=== PATIENT | male | born 1955 | race Two or more races ===

== ENCOUNTER 2018-05-21 21:30 | Emergency (ER) | payer MEDICAID ==
[~2018-05-21] VITALS: Ht 162.6 cm; Wt 92.5 kg
[2018-05-21] MEDS ORDERED: KEPPRA750 MG ORAL (21:45)
[2018-05-21] MEDS ORDERED: norvasc (21:45)
[2018-05-21] MEDS ORDERED: Revia (21:45)
[2018-05-21] MEDS ORDERED: OMEPRAZOLE20 M3 ORAL (21:45)
[2018-05-21] MEDS ORDERED: LIPITOR40 MG ORAL (21:45)
--- NOTE | 2018-05-21 21:49 | Emergency Room Report ---
History of Present Illness General Chief Complaint: Suicidal Source: Patient, Medical Record, EMS Present Illness HPI Is a 63-year-old male with a history of seizure and depression. He presents with suicidal thought. This has been ongoing since 2000. He was recently admitted to a psychiatric facility and discharged to a motel. He called 911 because he said he felt depressed and suicidal. No particular plan. Is currently taking medication. Denies any alcohol drugs. Denies any other complaint. Has numerous psychiatric admission per patient. Never once attempted suicide. Allergies: Coded Allergies: No Known Allergies (Unverified , 05/21/18) Patient History Past Medical History: see triage record, old chart reviewed, seizures, psych hx Past Surgical History: other Pertinent Family History: none Social History: Denies: smoking, alcohol use, drug use Immunizations: other Reviewed Nursing Documentation: PMH: Agreed; PSxH: Agreed Nursing Documentation-PMH Hx Diabetes: Yes History Of Psychiatric Problem: Yes - Depression Hx Seizures: Yes Review of Systems Eye: Denies: eye pain, blurred vision ENT: Denies: ear pain, nose congestion, throat swelling Respiratory: Denies: cough, shortness of breath Cardiovascular: Denies: chest pain, palpitations Gastrointestinal: Denies: abdominal pain, diarrhea, nausea, vomiting Musculoskeletal: Denies: back pain, joint pain Skin: Denies: rash Psychiatric: Reports: depressed feelings, SI Neurological: Denies: headache, numbness Endocrine: Denies: increased thirst, increased urine Hematologic/Lymphatic: Denies: easy bruising All Other Systems: negative except mentioned in HPI Physical Exam Vital Signs Date Time Temp Pulse Resp B/P (MAP) Pulse Ox O2 Delivery O2 Flow Rate FiO2 05/21/18 21:34 99.3 96 20 167/98 94 Room Air vitals normal except for high blood pressure Sp02 EP Interpretation: reviewed, normal General Appearance: well appearing, no apparent distress, alert Head: normocephalic, other - Hematoma to left forehead from previous trauma. Eyes: bilateral eye PERRL, bilateral eye EOMI ENT: hearing grossly normal, normal pharynx Neck: full range of motion, supple, no meningismus Respiratory: chest non-tender, lungs clear, normal breath sounds Cardiovascular #1: regular rate, rhythm, no murmur Gastrointestinal: normal bowel sounds, non tender, no mass, no organomegaly, no bruit, non-distended Musculoskeletal: back normal, gait/station normal, normal range of motion Psychiatric: mood/affect normal Skin: warm/dry Medical Decision Making Diagnostic Impression: Primary Impression: Suicidal ideation Additional Impression: Major depression Qualified Codes: F32.9 - Major depressive disorder, single episode, unspecified ER Course Patient with depression and suicidal thoughts. This is a chronic issue. To me said his been depressed since 2000. He was recently admitted and discharged from a psychiatric hospital. Right now after sleeping overnight, he denies any suicidal thoughts or homicidal thought. He has no particular plan. [facility]'ll [facility]. Last Vital Signs Date Time Temp Pulse Resp B/P (MAP) Pulse Ox O2 Delivery O2 Flow Rate FiO2 05/21/18 21:34 99.3 96 20 167/98 94 Room Air Status: improved Disposition: HOME, SELF-CARE Condition: Stable Patient Instructions: Suicidal Feelings: How to Help Yourself Additional Instructions: Follow-up with mental health as scheduled. Follow-up your doctor in 7 days. Return if worse. Ck Henry MD May 21, 2018 21:49
[2018-05-21 21:50] VITALS: BP 167/98
--- NOTE | 2018-05-21 21:50 | NUR ---
ER Nurse Note: Pt [place] from [facility] c/o suicidal ideation for six months. Per pt, he is depressed and SI become worse the last few days. Pt stated he has no plan and no prior plan. Pt a&ox4, VSS, no signs of distress. ERMD at pt side; will continue to [facility].
[2018-05-21 22:44] LABS: BASOPHILS % (AUTO) 0.9 % (0.0-2.0); EOSINOPHILS % (AUTO) 2.4 % (0.0-3.0); HEMATOCRIT 43.2 % (42.0-52.0); HEMOGLOBIN 14.1 G/DL (14.2-18.0); LYMPHOCYTES % (AUTO) 19.5 % (20.0-45.0); MEAN CORPUSCULAR VOLUME 82 FL (80-99); MONOCYTES % (AUTO) 6.3 % (1.0-10.0); NEUTROPHILS % (AUTO) 70.9 % (45.0-75.0); PLATELET COUNT 228 K/UL (150-450); RED BLOOD COUNT 5.28 M/UL (4.70-6.10); RED CELL DISTRIBUTION WIDTH 14.3 % (11.6-14.8)
--- NOTE | 2018-05-21 22:50 | NUR ---
ER Nurse Note: Pt belongings in locker 3. All labs sent per ERMD orders. Pt ambulates with shuffled but stady gait. Pt denies pain. Pt calm, follows commands, no signs of distress. All safety meaasures met; will continue to [facility].
[2018-05-21 22:53] LABS: ANION GAP 10 mmol/L (5-15); BLOOD UREA NITROGEN 8 mg/dL (7-18); CALCIUM 8.8 MG/DL (8.5-10.1); CARBON DIOXIDE 27 MMOL/L (21-32); CHLORIDE 98 MMOL/L (98-107); CREATININE 0.9 MG/DL (0.55-1.30); SODIUM 135 MMOL/L (136-145)
[2018-05-21 22:58] LABS: ALANINE AMINOTRANSFERASE 29 U/L (12-78); ALKALINE PHOSPHATASE 111 U/L (46-116); ASPARTATE AMINO TRANSFERASE 17 U/L (15-37); BILIRUBIN,TOTAL 0.4 MG/DL (0.2-1.0)
--- NOTE | 2018-05-22 01:49 | NUR ---
ER Nurse Note: Pt ambualted to restroom; currently asleep. VSS, no signs of distress. Will continue to [facility].
[2018-05-22 01:50] VITALS: BP 162/96
[2018-05-22 05:15] VITALS: BP 163/88
--- NOTE | 2018-05-22 05:16 | NUR ---
ER Nurse Note: Pt awake, calm, VSS, afebrile. Pt stated he feels "so much better" than when he first came in. Pt does not compain of pain; pt making jokes. IV removed; site clean and bandaged. All belongings given to pt. Transport arranged to pt to go back to [facility]. Will continue to [facility].
[2018-05-22 05:49] VITALS: BP 156/82
--- NOTE | 2018-05-22 05:49 | NUR ---
ER Nurse Note: Pt being transfered back to [facility] via [facility]. Pt left with all belongings. VSS, no signs of distress, IV removed.
== END 2018-05-22 05:50 | disposition home or self-care (01) ==
LOC: EDBD 21:30 → EMR 23:09
DX: F32.9 Major depressive disorder, single episode, unspecified (principal); R56.9 Unspecified convulsions; R45.851 Suicidal ideations; E11.9 Type 2 diabetes mellitus without complications
CPT/HCPCS: 36415; 80053; 80307; 80329; 85025; 99285

== ENCOUNTER 2018-06-13 19:05 | Inpatient (IN) | payer MEDICAID ==
[~2018-06-13] VITALS: Ht 162.6 cm; Wt 94.3 kg
[~2018-06-13 19:05] MED LIST: KEPPRA750 MG ORAL; LIPITOR40 MG ORAL; OMEPRAZOLE20 M3 ORAL; Revia; norvasc
--- NOTE | 2018-06-13 19:05 | NUR ---
ED Nurse Note: Pt arrived with EMT. EMT report Pt was feeling like he is gonna have seizure attack, and Pt has seizure Hx. Pt is AO x 4times, VSS, on room air no distress. GRICELD seen Pt at bedside.
--- NOTE | 2018-06-13 20:06 | Emergency Room Report ---
History of Present Illness General Chief Complaint: General Complaint Source: EMS Present Illness HPI 63-year-old male presents to the emergency department complaining of feeling shaky and as though he is on the verge of having a seizure. Patient reports history of seizures states that he takes Keppra and he has been taking his medication however he feels a "aura" which she describes as feeling nervous and having ringing in the ear on the left side. He denies nausea, vomiting, abdominal pain, sudden onset headache, dizziness, syncope, altered mental status or fever/chills. The patient has a history of diabetes requiring insulin any states that he does not take his insulin as he feels that it makes him feel "as though he did a bunch of cocaine "therefore he has self DC'd from a medication in 2010 according to the patient. This patient also reports history of alcohol abuse and dependence and states that the last 3 days he has been trying to cut back. Patient states that he went from drinking a 40oz + a pint of hard liquor per/day down to one 40oz per day and he states that his last intake was yesterday and he had a beer. Patient denies agitation. Allergies: Coded Allergies: No Known Allergies (Unverified , 05/21/18) Patient History Past Medical History: see triage record, DM, seizures, other - ETOH W/D, Brain surgery Past Surgical History: none Pertinent Family History: none Reviewed Nursing Documentation: PMH: Agreed; PSxH: Agreed Nursing Documentation-PM Past Medical History: No History, Except For Hx Diabetes: Yes Hx Cancer: Yes - prostate Hx Seizures: Yes Review of Systems All Other Systems: negative except mentioned in HPI Physical Exam Vital Signs Date Time Temp Pulse Resp B/P (MAP) Pulse Ox O2 Delivery O2 Flow Rate FiO2 06/13/18 18:57 100.0 95 18 128/81 96 Room Air Sp02 EP Interpretation: reviewed, normal General Appearance: alert, GCS 15, non-toxic, moderate distress - pt. shaky/ nervous Head: normocephalic, atraumatic Eyes: bilateral eye normal inspection, bilateral eye PERRL, bilateral eye photophobia ENT: hearing grossly normal, normal voice, moist mucus membranes, other - no oral trauma Neck: full range of motion, no bony tend Respiratory: lungs clear, normal breath sounds, no respiratory distress, no wheezing, speaking full sentences Cardiovascular #1: regular rate, rhythm, no edema, normal capillary refill Gastrointestinal: normal bowel sounds, non tender, soft Musculoskeletal: back normal, normal range of motion, non-tender Neurologic: alert, oriented x3, responsive, motor strength/tone normal, sensory intact, speech normal, other, grossly normal Psychiatric: judgement/insight normal Skin: normal color, no rash, warm/dry, well hydrated Medical Decision Making PA Attestation Dr. Obrien is my supervising Physician whom patient management has been discussed with. Diagnostic Impression: Primary Impression: Alcohol dependence with withdrawal, uncomplicated Additional Impression: Hyperglycemia ER Course 63-year-old male presents to the emergency department complaining of feeling shaky and as though he is on the verge of having a seizure. Patient reports history of seizures states that he takes Keppra and he has been taking his medication however he feels a "aura" which she describes as feeling nervous and having ringing in the ear on the left side. He denies nausea, vomiting, abdominal pain, sudden onset headache, dizziness, syncope, altered mental status or fever/chills. The patient has a history of diabetes requiring insulin any states that he does not take his insulin as he feels that it makes him feel "as though he did a bunch of cocaine "therefore he has self DC'd from a medication in 2010 according to the patient. This patient also reports history of alcohol abuse and dependence and states that the last 3 days he has been trying to cut back. Patient states that he went from drinking a 40oz + a pint of hard liquor per/day down to one 40oz per day and he states that his last intake was yesterday and he had a beer. Patient denies agitation. Ddx considered but are not limited to seizure, meningitis, infection, CVA/TIA, intracranial hemorrhage, intracranial process, Delirium Tremors, ETOH W/D, Vital signs: he is afebrile, vital signs are WNL H&PE are most consistent with ETOH w/d and possibly hyperglycemia ORDERS: -Bedside Accu Check: Critically High -CMP: Glucose of 638, Potassium of 4.8, elevated alk phos, normal LFT's. -CBC: unremarkable -UA: 4+ glucose -UDS: negative -Serum ETOH: no acute intoxication -Troponin: WNL - BNP: WNL ED INTERVENTIONS: -IV Fluids -10 Units Regular insulin IV -25mg Librium PO DISPOSITION: at this time pt. will be admitted to Dr. Nation for ETOH W/d and Hyperglycemia. Dr. Nation agreed to admit the pt. and to continue pt. care management. Labs Test 06/13/18 19:50 06/13/18 20:00 06/13/18 20:30 Urine Color Pale yellow Urine Appearance Clear Urine pH 5 (4.5-8.0) Urine Specific [place] 1.005 (1.005-1.035) Urine Protein Negative (NEGATIVE) Urine Glucose (UA) 4+ (NEGATIVE) Urine Ketones Negative (NEGATIVE) Urine Blood Negative (NEGATIVE) Urine Nitrite Negative (NEGATIVE) Urine Bilirubin Negative (NEGATIVE) Urine Urobilinogen Normal MG/DL (0.0-1.0) Urine Leukocyte Esterase Negative (NEGATIVE) Urine Opiates Screen Negative (NEGATIVE) Urine Barbiturates Screen Negative (NEGATIVE) Phencyclidine (PCP) Screen Negative (NEGATIVE) Urine Amphetamines Screen Negative (NEGATIVE) Urine Benzodiazepines Screen Negative (NEGATIVE) Urine Cocaine Screen Negative (NEGATIVE) Urine Marijuana (THC) Screen Negative (NEGATIVE) White Blood Count 9.0 K/UL (4.8-10.8) Red Blood Count 5.58 M/UL (4.70-6.10) Hemoglobin 14.8 G/DL (14.2-18.0) Hematocrit 46.1 % (42.0-52.0) Mean Corpuscular Volume 83 FL (80-99) Mean Corpuscular Hemoglobin 26.5 PG (27.0-31.0) Mean Corpuscular Hemoglobin Concent 32.0 G/DL (32.0-36.0) Red Cell Distribution Width 13.8 % (11.6-14.8) Platelet Count 257 K/UL (150-450) Mean Platelet Volume 7.3 FL (6.5-10.1) Neutrophils (%) (Auto) 80.8 % (45.0-75.0) Lymphocytes (%) (Auto) 13.1 % (20.0-45.0) Monocytes (%) (Auto) 5.0 % (1.0-10.0) Eosinophils (%) (Auto) 0.2 % (0.0-3.0) Basophils (%) (Auto) 1.0 % (0.0-2.0) Sodium Level 129 MMOL/L (136-145) Potassium Level 4.8 MMOL/L (3.5-5.1) Chloride Level 91 MMOL/L (98-107) Carbon Dioxide Level 28 MMOL/L (21-32) Anion Gap 10 mmol/L (5-15) Blood Urea Nitrogen 15 mg/dL (7-18) Creatinine 1.2 MG/DL (0.55-1.30) Estimat Glomerular Filtration Rate > 60 mL/min (>60) Glucose Level 638 MG/DL (74-106) Calcium Level 10.0 MG/DL (8.5-10.1) Total Bilirubin 0.7 MG/DL (0.2-1.0) Aspartate Amino Transf (AST/SGOT) 19 U/L (15-37) Alanine Aminotransferase (ALT/SGPT) 31 U/L (12-78) Alkaline Phosphatase 128 U/L (46-116) Total Creatine Kinase 107 U/L (26-308) Troponin I 0.000 ng/mL (0.000-0.056) Total Protein 8.5 G/DL (6.4-8.2) Albumin 4.4 G/DL (3.4-5.0) Globulin 4.1 g/dL Albumin/Globulin Ratio 1.1 (1.0-2.7) Serum Alcohol < 3 mg/dL Pro-B-Type Natriuretic Peptide 47 pg/mL (0-125) EKG Diagnostic Results EP Interpretation: Dr. Obrien Rate: normal - 93 BPM Rhythm: other - 1st degree AV block ST Segments: no acute changes ASA given to the pt in ED: No PA Scribe Text This Interpretation was scribed by LIAN Bautista. Last Vital Signs Date Time Temp Pulse Resp B/P (MAP) Pulse Ox O2 Delivery O2 Flow Rate FiO2 06/13/18 18:57 100.0 95 18 128/81 96 Room Air Disposition: ADMITTED INPATIENT Condition: Serious Signed Out To: Constance Layton Jun 13, 2018 20:06
[2018-06-13 20:20] LABS: APPEARANCE,URINE CLEAR; BILIRUBIN, URINE NEGATIVE (NEGATIVE); COLOR,URINE PALE YELLOW; GLUCOSE, URINE (UA) 4+ (NEGATIVE); KETONES,URINE NEGATIVE (NEGATIVE); LEUKOCYTE ESTERASE ,URINE NEGATIVE (NEGATIVE); NITRITE,URINE NEGATIVE (NEGATIVE); PH,URINE 5 (4.5-8.0); PROTEIN,URINE NEGATIVE (NEGATIVE); UROBILINOGEN,URINE NORMAL MG/DL (0.0-1.0)
[2018-06-13 20:23] LABS: EOSINOPHILS % (AUTO) 0.2 % (0.0-3.0); HEMATOCRIT 46.1 % (42.0-52.0); HEMOGLOBIN 14.8 G/DL (14.2-18.0); LYMPHOCYTES % (AUTO) 13.1 % (20.0-45.0); MEAN CORPUSCULAR VOLUME 83 FL (80-99); NEUTROPHILS % (AUTO) 80.8 % (45.0-75.0); PLATELET COUNT 257 K/UL (150-450); RED BLOOD COUNT 5.58 M/UL (4.70-6.10); RED CELL DISTRIBUTION WIDTH 13.8 % (11.6-14.8)
[2018-06-13 20:25] VITALS: BP 130/84
[2018-06-13 20:37] LABS: ALANINE AMINOTRANSFERASE 31 U/L (12-78); ALBUMIN 4.4 G/DL (3.4-5.0); ALBUMIN/GLOBULIN RATIO 1.1 (1.0-2.7); ALKALINE PHOSPHATASE 128 U/L (46-116); ANION GAP 10 mmol/L (5-15); ASPARTATE AMINO TRANSFERASE 19 U/L (15-37); BILIRUBIN,TOTAL 0.7 MG/DL (0.2-1.0); BLOOD UREA NITROGEN 15 mg/dL (7-18); CARBON DIOXIDE 28 MMOL/L (21-32); CHLORIDE 91 MMOL/L (98-107); CREATINE KINASE 107 U/L (26-308); CREATININE 1.2 MG/DL (0.55-1.30); POTASSIUM 4.8 MMOL/L (3.5-5.1); SODIUM 129 MMOL/L (136-145)
[2018-06-13] MEDS ORDERED: Insulin Human Regular 100units/ml 3ml IV ONE (21:00)
--- NOTE | 2018-06-13 21:00 | NUR ---
ED Nurse Note: Blood collected; sent down to lab
[2018-06-13] MEDS ORDERED: chlordiazePOXIDE 25mg Cap ORAL ONE (21:45)
--- NOTE | 2018-06-13 22:40 | NUR ---
TRANSFER TO FLOOR: Patient transferred to Telemetry 216-2 as ordered, per MD Messi . Report given to ADÁN Wilson. Belongings list completed with receiving RN. PT AO4. LORENZO. VSS.
--- NOTE | 2018-06-13 23:00 | NUR ---
NURSE NOTES: Received patient form ED, report given by ADÁN Ascencio. Patient awake, alert and verbally responsive. No SOB, no acute distress, denies any pain nor any discomfort at this time. Put on airport ramp attendant, VS stable. IV site on L thumb #18, patent and intact. Body assessment done, no skin breakdown noted. Belongings all accounted for. Oriented to staff and unit. Put bed at lowest position, instructed to press call light for any assistance, verbalized understanding. Per ADÁN Ascencio, initial BS 638, last one checked 238. Paged Dr. Swenson for admission orders. Will continue plan of care.
--- NOTE | 2018-06-13 23:15 | NUR ---
NURSE NOTES: Dr. Swenson with admission orders, noted and carried out. Also aware of Na+ of 129.
[2018-06-13] MEDS ORDERED: Acetaminophen 500mg (ES) tab ORAL PRN (23:45)
[2018-06-14] VITALS: BP 126/75
[2018-06-14 04:00] VITALS: BP 133/92
--- NOTE | 2018-06-14 04:15 | NUR ---
NURSE NOTES: Patient asleep, breathing even and unlabored, no s/sx of pain nor any discomfort at this time. Bed at lowest position, call light within reach. MRSA nares swab done but patient refused VRE/CRE.
--- NOTE | 2018-06-14 04:18 | NUR ---
NURSE NOTES: Dr. Swenson with no order for Na+, per MD, false hyponatremia d/t elevated BS.
[2018-06-14] MEDS: NovoLOG Insulin Flexpen SUBQ SCH ×4 (06:13→20:47)
[2018-06-14 06:23] LABS: BASOPHILS % (AUTO) 1.1 % (0.0-2.0); EOSINOPHILS % (AUTO) 3.1 % (0.0-3.0); HEMATOCRIT 44.8 % (42.0-52.0); HEMOGLOBIN 14.8 G/DL (14.2-18.0); LYMPHOCYTES % (AUTO) 25.2 % (20.0-45.0); MEAN CORPUSCULAR VOLUME 81 FL (80-99); MONOCYTES % (AUTO) 7.8 % (1.0-10.0); NEUTROPHILS % (AUTO) 62.8 % (45.0-75.0); PLATELET COUNT 240 K/UL (150-450); RED CELL DISTRIBUTION WIDTH 14.4 % (11.6-14.8); WHITE BLOOD COUNT 6.9 K/UL (4.8-10.8)
[2018-06-14 07:02] LABS: ALANINE AMINOTRANSFERASE 34 U/L (12-78); ALBUMIN/GLOBULIN RATIO 1.1 (1.0-2.7); ALKALINE PHOSPHATASE 117 U/L (46-116); ANION GAP 8 mmol/L (5-15); ASPARTATE AMINO TRANSFERASE 13 U/L (15-37); BILIRUBIN,TOTAL 0.7 MG/DL (0.2-1.0); BLOOD UREA NITROGEN 16 mg/dL (7-18); CALCIUM 9.5 MG/DL (8.5-10.1); CARBON DIOXIDE 30 MMOL/L (21-32); CHLORIDE 99 MMOL/L (98-107); SODIUM 137 MMOL/L (136-145)
--- NOTE | 2018-06-14 07:22 | NUR ---
HAND-OFF: Report given to ADÁN Bojorquez. Endorsed plan of care.
[2018-06-14 07:48] VITALS: BP 140/80
--- NOTE | 2018-06-14 09:31 | NUR ---
NURSE NOTES: pt awake alert, no distress. no sob. call light within reach. bed in lowest position, locked, pt no c/o pain
--- NOTE | 2018-06-14 09:55 | NUR ---
Social Service Note TOMMY met with patient to assess for homelessness. Patient is alert, oriented and verbally responsive in [place]. Patient states he has been residing at [facility] for several months, in their housing to health program. TOMMY spoke with the program manager Lucas Munir [phone] regarding patient's acceptance back into the program. Lucas patient is being followed by [employer] and his assistant customer service manager is Tracy. Lucas declined to provide Tracy's contact information to TOMMY. Lucas patient is approved to return to the [facility] location. Patient to have discharge instruction with him. TOMMY attempted to arrange a follow up appointment at patient's contracted facility [facility] [address] [place] [address]. [phone] [phone], . Per Adele in scheduling follow up appointment will be arranged by patient's assistant customer service manager and appointment date and time will be called to patient's housing program. Patient is in agreement with returning to facility. Taxi will be provided for transportation. Lucas would like patient to return to program today if medically appropriate. TOMMY informed Dr. Swenson. Homeless check list in chart. D/C Location: [address] [address]
--- NOTE | 2018-06-14 10:24 | Consultation ---
Consult Note Consult Note 63-year-old male presents to the emergency department complaining of feeling shaky and as though he is on the verge of having a seizure. Patient reports history of seizures states that he takes Keppra and he has been taking his medication however he feels a "aura" which she describes as feeling nervous and having ringing in the ear on the left side. He denies nausea, vomiting, abdominal pain, sudden onset headache, dizziness, syncope, altered mental status or fever/chills. The patient has a history of diabetes requiring insulin any states that he does not take his insulin as he feels that it makes him feel "as though he did a bunch of cocaine "therefore he has self DC'd from a medication in 2010 according to the patient. This patient also reports history of alcohol abuse and dependence and states that the last 3 days he has been trying to cut back. Patient states that he went from drinking a 40oz + a pint of hard liquor per/day down to one 40oz per day and he states that his last intake was yesterday and he had a beer. Patient denies agitation. No Known Allergies (Unverified , 05/21/18) Past Medical History: see triage record, DM, seizures, other - ETOH W/D, Brain surgery Past Medical History: No History, Except For Hx Diabetes: Yes Hx Cancer: Yes - prostate Hx Seizures: Yes examined data reviewed Assessment/Plan DM OOC Sz disorder Alcohol dependencey Prostate cancer obese glucophage Starlix monitor BS and [facility]ence med surg Nicolas Almaguer MD Jun 14, 2018 10:24
--- NOTE | 2018-06-14 10:26 | Consultation ---
History of Present Illness General Chief Complaint: General Complaint Present Illness HPI 63-year-old male came to the emergency room complaining of feeling shaky and anxious. the pt has hx of alcohol dependence and stated that he was too afraid to have another seizure. the pt stated that his las drink was 4 days ago. the pt is alert and oriented and had anxiety. the pt is not suicidal and removed his chest monitor twice. he was somewhat uncooperative with staff. Allergies: Coded Allergies: No Known Allergies (Unverified , 05/21/18) Medication History Scheduled Atorvastatin Calcium* (Lipitor*), 40 MG ORAL BEDTIME, (Reported) Omeprazole (Omeprazole), 20 MG ORAL DAILY, (Reported) Miscellaneous Medications Levetiracetam (Keppra), 750 MG ORAL, (Reported) [Revia], (Reported) [norvasc], (Reported) Patient History History Provided By: Patient, Medical Record, PMD Healthcare decision maker Resuscitation status Full Code Advanced Directive on File No Past Medical/Surgical History Past Medical/Surgical History: (1) Alcohol dependence with withdrawal, uncomplicated (2) Hyperglycemia Review of Systems Psychiatric: Reports: anxiety, depressed feelings, emotional problems Physical Exam General Appearance: no apparent distress, alert, overweight Neurologic: oriented x 3, responsive, depressed affect Last 24 Hour Vital Signs Date Time Temp Pulse Resp B/P (MAP) Pulse Ox O2 Delivery O2 Flow Rate FiO2 06/14/18 08:16 96 140/80 06/14/18 07:49 Room Air 06/14/18 07:48 97.3 96 18 140/80 (100) 95 06/14/18 07:44 92 06/14/18 04:00 75 06/14/18 04:00 97.3 72 18 133/92 (106) 95 06/14/18 00:00 98.6 89 18 126/75 (92) 96 06/13/18 23:16 Room Air 06/13/18 22:58 84 06/13/18 22:40 98.6 94 18 130/84 96 Room Air 06/13/18 20:25 99.4 18 130/84 96 Room Air 06/13/18 20:25 87 18 Room Air 06/13/18 18:57 100.0 95 18 128/81 96 Room Air Intake and Output 06/13/18 06/14/18 19:00 07:00 Intake Total 1120 ml Balance 1120 ml Intake Oral 120 ml IV Total 1000 ml # Voids 1 Laboratory Tests Test 06/13/18 19:50 06/13/18 20:00 06/13/18 20:30 06/14/18 05:50 Urine Color Pale yellow Urine Appearance Clear Urine pH 5 (4.5-8.0) Urine Specific [place] 1.005 (1.005-1.035) Urine Protein Negative (NEGATIVE) Urine Glucose (UA) 4+ (NEGATIVE) H Urine Ketones Negative (NEGATIVE) Urine Blood Negative (NEGATIVE) Urine Nitrite Negative (NEGATIVE) Urine Bilirubin Negative (NEGATIVE) Urine Urobilinogen Normal MG/DL (0.0-1.0) Urine Leukocyte Esterase Negative (NEGATIVE) Urine Opiates Screen Negative (NEGATIVE) Urine Barbiturates Screen Negative (NEGATIVE) Phencyclidine (PCP) Screen Negative (NEGATIVE) Urine Amphetamines Screen Negative (NEGATIVE) Urine Benzodiazepines Screen Negative (NEGATIVE) Urine Cocaine Screen Negative (NEGATIVE) Urine Marijuana (THC) Screen Negative (NEGATIVE) White Blood Count 9.0 K/UL (4.8-10.8) 6.9 K/UL (4.8-10.8) Red Blood Count 5.58 M/UL (4.70-6.10) 5.50 M/UL (4.70-6.10) Hemoglobin 14.8 G/DL (14.2-18.0) 14.8 G/DL (14.2-18.0) Hematocrit 46.1 % (42.0-52.0) 44.8 % (42.0-52.0) Mean Corpuscular Volume 83 FL (80-99) 81 FL (80-99) Mean Corpuscular Hemoglobin 26.5 PG (27.0-31.0) L 26.8 PG (27.0-31.0) L Mean Corpuscular Hemoglobin Concent 32.0 G/DL (32.0-36.0) 33.0 G/DL (32.0-36.0) Red Cell Distribution Width 13.8 % (11.6-14.8) 14.4 % (11.6-14.8) Platelet Count 257 K/UL (150-450) 240 K/UL (150-450) Mean Platelet Volume 7.3 FL (6.5-10.1) 8.1 FL (6.5-10.1) Neutrophils (%) (Auto) 80.8 % (45.0-75.0) H 62.8 % (45.0-75.0) Lymphocytes (%) (Auto) 13.1 % (20.0-45.0) L 25.2 % (20.0-45.0) Monocytes (%) (Auto) 5.0 % (1.0-10.0) 7.8 % (1.0-10.0) Eosinophils (%) (Auto) 0.2 % (0.0-3.0) 3.1 % (0.0-3.0) H Basophils (%) (Auto) 1.0 % (0.0-2.0) 1.1 % (0.0-2.0) Sodium Level 129 MMOL/L (136-145) L 137 MMOL/L (136-145) Potassium Level 4.8 MMOL/L (3.5-5.1) 4.0 MMOL/L (3.5-5.1) Chloride Level 91 MMOL/L (98-107) L 99 MMOL/L (98-107) Carbon Dioxide Level 28 MMOL/L (21-32) 30 MMOL/L (21-32) Anion Gap 10 mmol/L (5-15) 8 mmol/L (5-15) Blood Urea Nitrogen 15 mg/dL (7-18) 16 mg/dL (7-18) Creatinine 1.2 MG/DL (0.55-1.30) 1.0 MG/DL (0.55-1.30) Estimat Glomerular Filtration Rate > 60 mL/min (>60) > 60 mL/min (>60) Glucose Level 638 MG/DL (74-106) *H 406 MG/DL (74-106) #H Calcium Level 10.0 MG/DL (8.5-10.1) 9.5 MG/DL (8.5-10.1) Total Bilirubin 0.7 MG/DL (0.2-1.0) 0.7 MG/DL (0.2-1.0) Aspartate Amino Transf (AST/SGOT) 19 U/L (15-37) 13 U/L (15-37) L Alanine Aminotransferase (ALT/SGPT) 31 U/L (12-78) 34 U/L (12-78) Alkaline Phosphatase 128 U/L (46-116) H 117 U/L (46-116) H Total Creatine Kinase 107 U/L (26-308) Troponin I 0.000 ng/mL (0.000-0.056) Total Protein 8.5 G/DL (6.4-8.2) H 7.7 G/DL (6.4-8.2) Albumin 4.4 G/DL (3.4-5.0) 4.0 G/DL (3.4-5.0) Globulin 4.1 g/dL 3.7 g/dL Albumin/Globulin Ratio 1.1 (1.0-2.7) 1.1 (1.0-2.7) Serum Alcohol < 3 mg/dL Pro-B-Type Natriuretic Peptide 47 pg/mL (0-125) Height (Feet): 5 Height (Inches): 4.00 Weight (Pounds): 195 Medications Current Medications Medications (Trade) Dose Ordered Sig/Michelle Route PRN Reason Start Time Stop Time Status Last Admin Dose Admin Acetaminophen (Tylenol) 500 mg Q4H PRN ORAL Mild Pain/Temp > 100.5 06/13/18 23:45 07/13/18 23:44 Amlodipine Besylate (Norvasc) 5 mg DAILY ORAL 06/14/18 09:00 07/14/18 08:59 06/14/18 08:16 Atorvastatin Calcium (Lipitor) 40 mg BEDTIME ORAL 06/14/18 21:00 07/14/18 20:59 Dextrose (Dextrose 50%) 25 ml Q30M PRN IV Hypoglycemia 06/13/18 23:45 07/13/18 23:44 Dextrose (Dextrose 50%) 50 ml Q30M PRN IV Hypoglycemia 06/13/18 23:45 07/13/18 23:44 Escitalopram Oxalate (Lexapro) 10 mg DAILY ORAL 06/14/18 09:00 07/14/18 08:59 06/14/18 08:16 Insulin Aspart (NovoLOG) BEFORE MEALS AND HS SUBQ 06/14/18 06:30 07/14/18 06:29 06/14/18 06:13 Levetiracetam (Keppra) 750 mg Q12HR ORAL 06/14/18 09:00 07/14/18 08:59 06/14/18 08:16 Nateglinide (Starlix) 120 mg TIAC ORAL 06/14/18 11:30 07/14/18 11:29 Pantoprazole (Protonix) 40 mg ACBREAKFAST ORAL 06/14/18 06:30 07/14/18 06:29 06/14/18 06:10 Assessment/Plan Problem List: (1) Alcohol dependence with withdrawal, uncomplicated ICD Codes: F10.230 - Alcohol dependence with withdrawal, uncomplicated SNOMED: 86242592, [id number] Assessment/Plan Valium 10mg 1 time folate thiamine Valium prn Luiz Stuart MD Jun 14, 2018 10:26
[2018-06-14 10:44] LABS: PHOSPHORUS 3.5 MG/DL (2.5-4.9)
[2018-06-14 10:45] LABS: CHOLESTEROL 123 MG/DL (< 200); HDL CHOLESTEROL 37 MG/DL (40-60); TRIGLYCERIDES 236 MG/DL (30-150)
[2018-06-14] MEDS ORDERED: metFORMIN 500mg tab ORAL SCH (11:30)
[2018-06-14 12:00] VITALS: BP 133/67
[2018-06-14] MEDS ORDERED: Thiamine 100mg tab ORAL SCH (12:45)
--- NOTE | 2018-06-14 14:37 | NUR ---
HAND-OFF: Report given to Rafael DUONG RN.
--- NOTE | 2018-06-14 14:40 | NUR ---
NURSE NOTES: Received patient to 405-2. Patient oriented to room. Belongings verified. Patient stable. Will continue to monitor.
[2018-06-14] MEDS ORDERED: Acetaminophen 500mg (ES) tab ORAL PRN (15:00)
[2018-06-14 15:54] VITALS: BP 139/81
--- NOTE | 2018-06-14 16:06 | NUR ---
CASE MANAGEMENT: REVIEW 63/M BIBA FROM [facility] CC: SEIZURE AURA SI: HYPERGLYCEMIA T 100.0 HR 87 RR 18 BP 128/81 SAT 96% ROOM AIR GLUCOSE 638 ALK PHOS 128 IS: NS IVF BOLUS X1 NOVOLIN R 10 UNITS IV X1 PATIENT ADMITTED TO MED/SURG UNIT 06/13/2018 DCP: PATIENT IS [facility]
[2018-06-14] MEDS: metFORMIN 500mg tab ORAL SCH (17:08)
--- NOTE | 2018-06-14 18:01 | Cardiology Report ---
APPROVED REPORT EKG Measurement Heart [id number] Sinus rhythm with 1st degree AV block Possible Inferior infarct, age undetermined Abnormal ECG
--- NOTE | 2018-06-14 19:17 | NUR ---
HAND-OFF: Report given to ADÁN Beltrán.
--- NOTE | 2018-06-14 19:37 | NUR ---
NURSE NOTES: Received patient awake,alert,verbal,resting in bed comfortably without complaints.
[2018-06-14 20:00] VITALS: BP 140/67
[2018-06-14] MEDS: Atorvastatin 80mg tab ORAL SCH (20:46)
[2018-06-14] MEDS ORDERED: Atorvastatin 80mg tab ORAL SCH (21:00)
[2018-06-15] VITALS (7 sets, daily range): BP systolic 124–161; BP diastolic 70–80
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
[2018-06-15] MEDS: metFORMIN 500mg tab ORAL SCH ×3 (05:49→17:21)
[2018-06-15] MEDS: NovoLOG Insulin Flexpen SUBQ SCH ×7 (05:50→20:55)
--- NOTE | 2018-06-15 07:38 | NUR ---
HAND-OFF: Report given to Rashaad Alvarez RN.
--- NOTE | 2018-06-15 08:03 | NUR ---
NURSE NOTES: Received pt from ADÁN RIDLEY. Pt is alert and orient x4. No SOB or acute respiratory distress noted. pt has iv access LH 24g is running well. all needs attended, bed is locked and is in the lowest position. call light within easy reach. will continue to monitor.
[2018-06-15] MEDS: Thiamine 100mg tab ORAL SCH (08:36)
[2018-06-15] MEDS: Levemir Flexpen SUBQ SCH (08:42)
[2018-06-15] MEDS ORDERED: Thiamine 100mg tab ORAL SCH (09:00)
--- NOTE | 2018-06-15 13:52 | General Progress Note ---
Assessment/Plan Problem List: (1) Alcohol dependence with withdrawal, uncomplicated ICD Codes: F10.230 - Alcohol dependence with withdrawal, uncomplicated SNOMED: 05292854, 01757231 Assessment/Plan Valium 10mg 1 time folate thiamine Valium prn Subjective Neurologic/Psychiatric: Reports: anxiety, depressed Allergies: Coded Allergies: No Known Allergies (Unverified , 05/21/18) Objective Last 24 Hour Vital Signs Date Time Temp Pulse Resp B/P (MAP) Pulse Ox O2 Delivery O2 Flow Rate FiO2 06/15/18 12:00 97.5 69 18 134/70 (91) 96 06/15/18 08:38 77 150/71 06/15/18 08:00 98.1 77 18 150/72 (98) 98 06/15/18 04:00 98.0 61 22 150/80 (103) 99 06/15/18 00:23 98.0 74 20 124/72 (89) 96 06/14/18 20:25 Room Air 06/14/18 20:00 98.3 68 20 140/67 (91) 95 06/14/18 15:54 98.3 68 21 139/81 (100) 95 Intake and Output 06/14/18 06/15/18 19:00 07:00 Intake Total 984 ml 600 ml Output Total 800 ml Balance 984 ml -200 ml Intake Oral 834 ml IV Total 150 ml 600 ml Output Urine Total 800 ml Height (Feet): 5 Height (Inches): 4.00 Weight (Pounds): 195 General Appearance: no apparent distress, alert Neurologic: oriented x 3, responsive, depressed affect Luiz Stuart MD Jun 15, 2018 13:52
--- NOTE | 2018-06-15 15:31 | Nephrology Progress Note ---
Assessment/Plan Problem List: (1) Hyperglycemia (2) Alcohol dependence with withdrawal, uncomplicated Assessment DM OOC Sz disorder Alcohol dependencey Prostate cancer obese Plan glucophage Starlix now on levemir monitor BS and lytes med surg Subjective ROS Limited/Unobtainable: No Objective Objective Last 24 Hour Vital Signs Date Time Temp Pulse Resp B/P (MAP) Pulse Ox O2 Delivery O2 Flow Rate FiO2 06/15/18 12:00 97.5 69 18 134/70 (91) 96 06/15/18 08:38 77 150/71 06/15/18 08:00 98.1 77 18 150/72 (98) 98 06/15/18 04:00 98.0 61 22 150/80 (103) 99 06/15/18 00:23 98.0 74 20 124/72 (89) 96 06/14/18 20:25 Room Air 06/14/18 20:00 98.3 68 20 140/67 (91) 95 06/14/18 15:54 98.3 68 21 139/81 (100) 95 Intake and Output 06/14/18 06/15/18 19:00 07:00 Intake Total 984 ml 600 ml Output Total 800 ml Balance 984 ml -200 ml Intake Oral 834 ml IV Total 150 ml 600 ml Output Urine Total 800 ml Height (Feet): 5 Height (Inches): 4.00 Weight (Pounds): 195 Cardiovascular: normal rate Respiratory/Chest: decreased breath sounds Abdomen: soft, other - obese Nicolas Almaguer MD Jun 15, 2018 15:31
[2018-06-15] MEDS: Tamsulosin 0.4mg cap ORAL SCH (17:21)
--- NOTE | 2018-06-15 19:33 | NUR ---
HAND-OFF: Report given to ADÁN CHE.
--- NOTE | 2018-06-15 19:34 | NUR ---
NURSE NOTES: Received patient in no apparent distress. A&OX4. IV site patent and intact. Bed in lowest position. Call light within reach. Will continue to monitor.
[2018-06-15] MEDS: Atorvastatin 80mg tab ORAL SCH (20:53)
--- NOTE | 2018-06-15 21:53 | General Progress Note ---
Assessment/Plan Problem List: (1) Alcohol dependence with withdrawal, uncomplicated ICD Codes: F10.230 - Alcohol dependence with withdrawal, uncomplicated SNOMED: 00550308, 26053558 (2) Hyperglycemia ICD Codes: R73.9 - Hyperglycemia, unspecified SNOMED: 51695434, 93019310 Status: progressing Assessment/Plan hyperglycemia is improving afebrile etoh abuse check lytes s/p seizure reviewed chart and labs Subjective ROS Limited/Unobtainable: Yes Allergies: Coded Allergies: No Known Allergies (Unverified , 05/21/18) Objective Last 24 Hour Vital Signs Date Time Temp Pulse Resp B/P (MAP) Pulse Ox O2 Delivery O2 Flow Rate FiO2 06/15/18 20:00 98.5 75 20 133/75 (94) 95 06/15/18 16:00 97.7 67 20 161/80 (107) 95 06/15/18 12:00 97.5 69 18 134/70 (91) 96 06/15/18 08:38 77 150/71 06/15/18 08:00 98.1 77 18 150/72 (98) 98 06/15/18 04:00 98.0 61 22 150/80 (103) 99 06/15/18 00:23 98.0 74 20 124/72 (89) 96 Intake and Output 06/14/18 06/15/18 18:59 06:59 Intake Total 934 ml 600 ml Output Total 800 ml Balance 934 ml -200 ml Intake Oral 834 ml IV Total 100 ml 600 ml Output Urine Total 800 ml Laboratory Tests 06/15/18 17:10: C-Reactive Protein, Quantitative < 0.4 Height (Feet): 5 Height (Inches): 4.00 Weight (Pounds): 195 EENT: PERRL/EOMI Cardiovascular: normal rate Respiratory/Chest: lungs clear Abdomen: soft Micha Swenson MD Jun 15, 2018 21:53
--- NOTE | 2018-06-15 22:45 | Consultation ---
DATE OF CONSULTATION: 06/15/2018 NOTE: POOR AUDIO. ENDOCRINOLOGY CONSULTATION CONSULTING PHYSICIAN: Iban Baldwin M.D. REFERRING PHYSICIAN: Micha Swenson M.D. REASON FOR CONSULTATION: Diabetes management. HISTORY OF PRESENT ILLNESS: The patient is a 63-year-old male with history of diabetes who presented to the hospital, complaining of feeling shaky, having seizure. The patient has history of seizure, was on Keppra. The diabetes has been out of control. Endocrinology was consulted. The patient has been compliant. The patient has been on insulin before, which makes him feel like he is taking much of cocaine. The patient has history of alcohol dependence. PAST MEDICAL HISTORY: Diabetes, alcoholism, prostate cancer, seizure disorder, and obesity. PAST SURGICAL HISTORY: Brain surgery. MEDICATIONS: Medications reviewed and reconciled. SOCIAL HISTORY: Alcoholism. REVIEW OF SYSTEMS: As per HPI. LABORATORY VALUES: Sodium 137, potassium 4, chloride 99, bicarbonate 30, BUN 16, creatinine 1.0, and glucose 400. Hemoglobin of 9.7. PHYSICAL EXAMINATION: VITAL SIGNS: Blood pressure 150/80, pulse of 61, temperature of 98, and respiratory rate of 22. HEENT: Pupils are equal and reactive to light. Sclerae anicteric. NECK: No JVD. HEART: Regular. LUNGS: Clear. ABDOMEN: Positive bowel sounds. EXTREMITIES: No clubbing, cyanosis, or edema. DIAGNOSES: 1. Alcoholism. 2. Seizure disorder. 3. Pending ETOH withdrawal. 4. Diabetes, out of control. PLAN: 1. Continue metformin and Starlix. 2. Although, the patient has uncomfortable reaction to insulin was not a real side effect or dangerous side effect. We will start the patient on Levemir 30 units daily and NovoLog 6 units before each meal. 3. Further adjustment according to glucose values. 4. We will follow the patient during hospital stay. Thank you, Dr. Swenson, for the courtesy of this consultation. Iban Baldwin M.D. DR: TAWANA JOB#: [id number] CC: MADELAINE
[2018-06-16] VITALS (7 sets, daily range): BP systolic 111–145; BP diastolic 43–84
--- NOTE | 2018-06-16 02:00 | NUR ---
NURSE NOTES: Patient pulled out IV. Tried insert new IV but couldn't get it. Many nurses tried new IV but couldn't get it. Will try later.
--- NOTE | 2018-06-16 04:12 | NUR ---
NURSE NOTES: Another nurse tried insert new IV but couldn't get it.
[2018-06-16 06:20] LABS: BASOPHILS % (AUTO) 1.2 % (0.0-2.0); EOSINOPHILS % (AUTO) 3.2 % (0.0-3.0); HEMATOCRIT 40.9 % (42.0-52.0); HEMOGLOBIN 13.6 G/DL (14.2-18.0); LYMPHOCYTES % (AUTO) 22.3 % (20.0-45.0); MEAN CORPUSCULAR VOLUME 81 FL (80-99); MONOCYTES % (AUTO) 6.8 % (1.0-10.0); NEUTROPHILS % (AUTO) 66.5 % (45.0-75.0); PLATELET COUNT 233 K/UL (150-450); RED BLOOD COUNT 5.02 M/UL (4.70-6.10); RED CELL DISTRIBUTION WIDTH 14.2 % (11.6-14.8)
[2018-06-16] MEDS: metFORMIN 500mg tab ORAL SCH ×3 (06:20→17:09)
[2018-06-16] MEDS: NovoLOG Insulin Flexpen SUBQ SCH ×7 (06:22→20:27)
[2018-06-16 06:57] LABS: ALANINE AMINOTRANSFERASE 24 U/L (12-78); ALBUMIN 3.3 G/DL (3.4-5.0); ALKALINE PHOSPHATASE 91 U/L (46-116); ANION GAP 7 mmol/L (5-15); ASPARTATE AMINO TRANSFERASE 14 U/L (15-37); BILIRUBIN,TOTAL 0.3 MG/DL (0.2-1.0); BLOOD UREA NITROGEN 16 mg/dL (7-18); CARBON DIOXIDE 27 MMOL/L (21-32); CHLORIDE 102 MMOL/L (98-107); CREATININE 0.8 MG/DL (0.55-1.30); POTASSIUM 3.6 MMOL/L (3.5-5.1); SODIUM 136 MMOL/L (136-145)
--- NOTE | 2018-06-16 07:25 | NUR ---
HAND-OFF: Report given to Rashaad MCCAIN.
--- NOTE | 2018-06-16 07:41 | NUR ---
NURSE NOTES: Received pt from ADÁN CHE. Pt is alert and orient x4. No SOB or acute respiratory distress noted. pt has intact iv access RH 24g is running well. all needs attended, bed is locked and is in the lowest position call light within easy reach. will continue to monitor.
[2018-06-16] MEDS: Tamsulosin 0.4mg cap ORAL SCH ×2 (08:29→17:09)
[2018-06-16] MEDS: Thiamine 100mg tab ORAL SCH (08:29)
[2018-06-16] MEDS: Levemir Flexpen SUBQ SCH (08:39)
--- NOTE | 2018-06-16 10:57 | NUR ---
RD ASSESSMENT & RECOMMENDATIONS SEE CARE ACTIVITY FOR COMPLETE ASSESSMENT DAILY ESTIMATED NEEDS: Needs based on DM, 68kg adj 25-30 kcals/kg 3486-1192 total kcals 1-1.5 g protein/kg 68-102 g total protein 25-30 mL/kg 6730-9627 total fluid mLs NUTRITION DIAGNOSIS: Altered nutrition related lab values r/t Diabetes and hyperglycemia as evidenced by pt adm w/ BG 638, A1C 9.7. CURRENT DIET:[facility] MED chopped PO DIET RECOMMENDATIONS: CCHO LOW + 1-CARB/ HIGH PROTEIN SNACK TID (texture as tolerated) ADDITIONAL RECOMMENDATIONS: 1) Obtain a standing weight as able 2) Add B-complex x1 daily 3) Check lytes daily, replete as needed 4) Diet edu provided
--- NOTE | 2018-06-16 12:51 | General Progress Note ---
Assessment/Plan Problem List: (1) Alcohol dependence with withdrawal, uncomplicated ICD Codes: F10.230 - Alcohol dependence with withdrawal, uncomplicated SNOMED: 61925570, 59579756 Assessment/Plan Valium 10mg 1 time folate thiamine Valium prn Subjective Neurologic/Psychiatric: Reports: anxiety, depressed, emotional problems Allergies: Coded Allergies: No Known Allergies (Unverified , 05/21/18) Objective Last 24 Hour Vital Signs Date Time Temp Pulse Resp B/P (MAP) Pulse Ox O2 Delivery O2 Flow Rate FiO2 06/16/18 11:55 98.2 74 20 123/84 (97) 94 06/16/18 09:00 Room Air 06/16/18 08:30 69 137/84 06/16/18 08:00 98.0 69 20 137/84 (101) 97 06/16/18 04:00 98.5 73 18 131/72 (91) 100 06/16/18 00:00 98.3 68 18 136/74 (94) 97 06/15/18 21:51 Room Air 06/15/18 20:00 98.5 75 20 133/75 (94) 95 06/15/18 17:00 97.7 70 20 153/71 (98) 95 06/15/18 16:00 97.7 67 20 161/80 (107) 95 Intake and Output 06/15/18 06/16/18 19:00 07:00 Intake Total 1560 ml 600 ml Output Total 1400 ml 750 ml Balance 160 ml -150 ml Intake Oral 960 ml 250 ml IV Total 600 ml 350 ml Output Urine Total 1400 ml 750 ml # Voids 5 # Bowel Movements 2 Laboratory Tests 06/15/18 17:10: C-Reactive Protein, Quantitative < 0.4 06/16/18 05:42: White Blood Count 7.0, Red Blood Count 5.02, Hemoglobin 13.6L, Hematocrit 40.9L , Mean Corpuscular Volume 81, Mean Corpuscular Hemoglobin 27.0, Mean Corpuscular Hemoglobin Concent 33.2, Red Cell Distribution Width 14.2, Platelet Count 233, Mean Platelet Volume 8.7, Neutrophils (%) (Auto) 66.5, Lymphocytes (% ) (Auto) 22.3, Monocytes (%) (Auto) 6.8, Eosinophils (%) (Auto) 3.2H, Basophils (%) (Auto) 1.2, Sodium Level 136, Potassium Level 3.6, Chloride Level 102, Carbon Dioxide Level 27, Anion Gap 7, Blood Urea Nitrogen 16, Creatinine 0.8, Estimat Glomerular Filtration Rate > 60, Glucose Level 259H, Calcium Level 8.0L , Phosphorus Level 3.0, Magnesium Level 1.5L, Total Bilirubin 0.3, Aspartate Amino Transf (AST/SGOT) 14L, Alanine Aminotransferase (ALT/SGPT) 24, Alkaline Phosphatase 91, Pro-B-Type Natriuretic Peptide 30, Total Protein 6.7, Albumin 3.3L, Globulin 3.4, Albumin/Globulin Ratio 1.0, Vitamin B12 Level 564, Folate 29.6 Height (Feet): 5 Height (Inches): 4.00 Weight (Pounds): 195 General Appearance: WD/WN, no apparent distress, alert Luiz Stuart MD Jun 16, 2018 12:51
--- NOTE | 2018-06-16 14:56 | Nephrology Progress Note ---
Assessment/Plan Problem List: (1) Hyperglycemia (2) Alcohol dependence with withdrawal, uncomplicated Assessment DM OOC Sz disorder Alcohol dependencey Prostate cancer obese Plan glucophage DC Starlix now on levemir am and HS monitor BS and lytes med surg Subjective ROS Limited/Unobtainable: No Objective Objective Last 24 Hour Vital Signs Date Time Temp Pulse Resp B/P (MAP) Pulse Ox O2 Delivery O2 Flow Rate FiO2 06/16/18 11:55 98.2 74 20 123/84 (97) 94 06/16/18 09:00 Room Air 06/16/18 08:30 69 137/84 06/16/18 08:00 98.0 69 20 137/84 (101) 97 06/16/18 04:00 98.5 73 18 131/72 (91) 100 06/16/18 00:00 98.3 68 18 136/74 (94) 97 06/15/18 21:51 Room Air 06/15/18 20:00 98.5 75 20 133/75 (94) 95 06/15/18 17:00 97.7 70 20 153/71 (98) 95 06/15/18 16:00 97.7 67 20 161/80 (107) 95 Intake and Output 06/15/18 06/16/18 19:00 07:00 Intake Total 1560 ml 600 ml Output Total 1400 ml 750 ml Balance 160 ml -150 ml Intake Oral 960 ml 250 ml IV Total 600 ml 350 ml Output Urine Total 1400 ml 750 ml # Voids 5 # Bowel Movements 2 Laboratory Tests 06/15/18 17:10: C-Reactive Protein, Quantitative < 0.4 06/16/18 05:42: White Blood Count 7.0, Red Blood Count 5.02, Hemoglobin 13.6L, Hematocrit 40.9L , Mean Corpuscular Volume 81, Mean Corpuscular Hemoglobin 27.0, Mean Corpuscular Hemoglobin Concent 33.2, Red Cell Distribution Width 14.2, Platelet Count 233, Mean Platelet Volume 8.7, Neutrophils (%) (Auto) 66.5, Lymphocytes (% ) (Auto) 22.3, Monocytes (%) (Auto) 6.8, Eosinophils (%) (Auto) 3.2H, Basophils (%) (Auto) 1.2, Sodium Level 136, Potassium Level 3.6, Chloride Level 102, Carbon Dioxide Level 27, Anion Gap 7, Blood Urea Nitrogen 16, Creatinine 0.8, Estimat Glomerular Filtration Rate > 60, Glucose Level 259H, Calcium Level 8.0L , Phosphorus Level 3.0, Magnesium Level 1.5L, Total Bilirubin 0.3, Aspartate Amino Transf (AST/SGOT) 14L, Alanine Aminotransferase (ALT/SGPT) 24, Alkaline Phosphatase 91, Pro-B-Type Natriuretic Peptide 30, Total Protein 6.7, Albumin 3.3L, Globulin 3.4, Albumin/Globulin Ratio 1.0, Vitamin B12 Level 564, Folate 29.6 Height (Feet): 5 Height (Inches): 4.00 Weight (Pounds): 195 General Appearance: no apparent distress Objective no change Nicolas Almaguer MD Jun 16, 2018 14:56
--- NOTE | 2018-06-16 19:06 | NUR ---
HAND-OFF: Report given to ADÁN SOL.
--- NOTE | 2018-06-16 19:26 | NUR ---
NURSE NOTES: Received patient in bed, awake. alert, oriented, no acute distress noted, call light is within reach. Bed is in low position, locked and alarm is on. Will continue to monitor.
[2018-06-16] MEDS: Atorvastatin 80mg tab ORAL SCH (20:21)
[2018-06-16] MEDS ORDERED: Levemir Flexpen SUBQ SCH (21:00)
--- NOTE | 2018-06-16 23:18 | General Progress Note ---
Assessment/Plan Problem List: (1) Alcohol dependence with withdrawal, uncomplicated ICD Codes: F10.230 - Alcohol dependence with withdrawal, uncomplicated SNOMED: 23774833, 54122943 (2) Hyperglycemia ICD Codes: R73.9 - Hyperglycemia, unspecified SNOMED: 22477804, 70960547 Status: progressing Assessment/Plan hyperglycemia is improving afebrile etoh abuse lytes improving no dka noncompliant w meds and diet s/p seizure Subjective ROS Limited/Unobtainable: Yes Allergies: Coded Allergies: No Known Allergies (Unverified , 05/21/18) Objective Last 24 Hour Vital Signs Date Time Temp Pulse Resp B/P (MAP) Pulse Ox O2 Delivery O2 Flow Rate FiO2 06/16/18 21:50 Room Air 06/16/18 20:00 98.8 83 18 129/77 (94) 06/16/18 16:35 98.1 83 20 145/83 (103) 97 06/16/18 11:55 98.2 74 20 123/84 (97) 94 06/16/18 09:00 Room Air 06/16/18 08:30 69 137/84 06/16/18 08:00 98.0 69 20 137/84 (101) 97 06/16/18 04:00 98.5 73 18 131/72 (91) 100 06/16/18 00:00 98.3 68 18 136/74 (94) 97 Intake and Output 06/15/18 06/16/18 19:00 07:00 Intake Total 1560 ml 600 ml Output Total 1400 ml 750 ml Balance 160 ml -150 ml Intake Oral 960 ml 250 ml IV Total 600 ml 350 ml Output Urine Total 1400 ml 750 ml # Voids 5 # Bowel Movements 2 Laboratory Tests 06/16/18 05:42: White Blood Count 7.0, Red Blood Count 5.02, Hemoglobin 13.6L, Hematocrit 40.9L , Mean Corpuscular Volume 81, Mean Corpuscular Hemoglobin 27.0, Mean Corpuscular Hemoglobin Concent 33.2, Red Cell Distribution Width 14.2, Platelet Count 233, Mean Platelet Volume 8.7, Neutrophils (%) (Auto) 66.5, Lymphocytes (% ) (Auto) 22.3, Monocytes (%) (Auto) 6.8, Eosinophils (%) (Auto) 3.2H, Basophils (%) (Auto) 1.2, Sodium Level 136, Potassium Level 3.6, Chloride Level 102, Carbon Dioxide Level 27, Anion Gap 7, Blood Urea Nitrogen 16, Creatinine 0.8, Estimat Glomerular Filtration Rate > 60, Glucose Level 259H, Calcium Level 8.0L , Phosphorus Level 3.0, Magnesium Level 1.5L, Total Bilirubin 0.3, Aspartate Amino Transf (AST/SGOT) 14L, Alanine Aminotransferase (ALT/SGPT) 24, Alkaline Phosphatase 91, Pro-B-Type Natriuretic Peptide 30, Total Protein 6.7, Albumin 3.3L, Globulin 3.4, Albumin/Globulin Ratio 1.0, Vitamin B12 Level 564, Folate 29.6 Height (Feet): 5 Height (Inches): 4.00 Weight (Pounds): 195 Cardiovascular: normal rate Respiratory/Chest: lungs clear Abdomen: soft Micha Swenson MD Jun 16, 2018 23:18
[2018-06-17] VITALS: BP 143/83
[2018-06-17 04:00] VITALS: BP 124/79
[2018-06-17] MEDS: NovoLOG Insulin Flexpen SUBQ SCH ×7 (06:18→20:20)
[2018-06-17] MEDS: metFORMIN 500mg tab ORAL SCH ×3 (06:20→17:01)
--- NOTE | 2018-06-17 07:20 | NUR ---
HAND-OFF: Report given to Rashaad MCCAIN.
--- NOTE | 2018-06-17 07:30 | NUR ---
NURSE NOTES: Received pt from ADÁN SOL. Pt is alert and orient x4. No SOB or acute respiratory distress noted. pt has intact iv access LH 24g SL. pt is eating breakfast by him self. all needs attended, bed is locked and is in the lowest position. call light within easy reach. will continue to monitor.
--- NOTE | 2018-06-17 07:47 | General Progress Note ---
Assessment/Plan Problem List: (1) Hyperglycemia ICD Codes: R73.9 - Hyperglycemia, unspecified SNOMED: 99345736, 46050884 (2) Alcohol dependence with withdrawal, uncomplicated ICD Codes: F10.230 - Alcohol dependence with withdrawal, uncomplicated SNOMED: 33244379, 17196959 Assessment/Plan DC Levemir 15 units qhs continue Levemir 30 units qam increase Novolog to 8 units ac tid continue Metformin 500 mg tid continue NISS ac / hs Subjective Allergies: Coded Allergies: No Known Allergies (Unverified , 05/21/18) All Systems: reviewed and negative except above Subjective feeling better having breakfast Item Value Date Time Bedside Blood Glucose 326 mg/dl H 06/15/18 0602 Bedside Blood Glucose 175 mg/dl H 06/17/18 0623 Bedside Blood Glucose Critically High Result 06/16/18 2152 Bedside Blood Glucose 275 mg/dl H 06/16/18 1713 Bedside Blood Glucose 242 mg/dl H 06/16/18 1214 Bedside Blood Glucose 266 mg/dl H 06/16/18 0839 Objective Last 24 Hour Vital Signs Date Time Temp Pulse Resp B/P (MAP) Pulse Ox O2 Delivery O2 Flow Rate FiO2 06/17/18 04:00 98.1 68 19 124/79 (94) 06/17/18 00:00 98.1 67 19 143/83 (103) 06/16/18 21:50 Room Air 06/16/18 20:00 98.8 83 18 129/77 (94) 06/16/18 16:35 98.1 83 20 145/83 (103) 97 06/16/18 11:55 98.2 74 20 123/84 (97) 94 06/16/18 09:00 Room Air 06/16/18 08:30 69 137/84 06/16/18 08:00 98.0 69 20 137/84 (101) 97 Intake and Output 06/16/18 06/17/18 18:59 06:59 Intake Total 1360 ml 500 ml Output Total 900 ml Balance 460 ml 500 ml Intake Oral 960 ml IV Total 400 ml Other 500 ml Output Urine Total 900 ml # Voids 4 # Bowel Movements 2 Height (Feet): 5 Height (Inches): 4.00 Weight (Pounds): 195 General Appearance: no apparent distress Neck: normal alignment Cardiovascular: normal rate Respiratory/Chest: normal breath sounds Abdomen: normal bowel sounds Objective Current Medications Medications (Trade) Dose Ordered Sig/Michelle Route PRN Reason Start Time Stop Time Status Last Admin Dose Admin Acetaminophen (Tylenol) 500 mg Q4H PRN ORAL Mild Pain/Temp > 100.5 06/14/18 15:00 07/13/18 14:59 Amlodipine Besylate (Norvasc) 5 mg DAILY ORAL 06/15/18 09:00 07/14/18 08:59 06/16/18 08:30 Atorvastatin Calcium (Lipitor) 40 mg BEDTIME ORAL 06/14/18 21:00 07/14/18 20:59 06/16/18 20:21 Dextrose (Dextrose 50%) 25 ml Q30M PRN IV Hypoglycemia 06/15/18 07:00 07/15/18 06:59 Dextrose (Dextrose 50%) 50 ml Q30M PRN IV Hypoglycemia 06/15/18 07:00 07/15/18 06:59 Diazepam (Valium) 10 mg Q6H PRN ORAL For Anxiety 06/14/18 15:00 06/21/18 14:59 Escitalopram Oxalate (Lexapro) 10 mg DAILY ORAL 06/15/18 09:00 07/14/18 08:59 06/16/18 08:29 Insulin Aspart (NovoLOG) BEFORE MEALS AND HS SUBQ 06/14/18 16:30 07/14/18 06:29 06/17/18 06:18 Insulin Aspart (NovoLOG) 6 units NOVOTIAC SUBQ 06/15/18 07:00 07/15/18 06:59 06/17/18 06:18 Insulin Detemir (Levemir) 15 units BEDTIME SUBQ 06/16/18 21:00 07/16/18 20:59 06/16/18 20:25 Insulin Detemir (Levemir) 30 units DAILY SUBQ 06/15/18 09:00 07/15/18 08:59 06/16/18 08:39 Levetiracetam (Keppra) 750 mg Q12HR ORAL 06/14/18 21:00 07/14/18 08:59 06/16/18 20:21 Metformin HCl (Glucophage) 500 mg TIAC ORAL 06/14/18 16:30 07/14/18 11:29 06/17/18 06:20 Pantoprazole (Protonix) 40 mg Q12HR ORAL 06/14/18 21:00 07/14/18 20:59 06/16/18 20:22 Tamsulosin HCl (Flomax) 0.4 mg BID ORAL 06/15/18 18:00 07/15/18 17:59 06/16/18 17:09 Thiamine HCl (Vitamin B1) 100 mg DAILY ORAL 06/15/18 09:00 07/14/18 12:44 06/16/18 08:29 Item Value Date Time Bedside Blood Glucose 175 mg/dl H 06/17/18 0623 Bedside Blood Glucose Critically High Result 06/16/18 2152 Bedside Blood Glucose 275 mg/dl H 06/16/18 1713 Bedside Blood Glucose 242 mg/dl H 06/16/18 1214 Bedside Blood Glucose 266 mg/dl H 06/16/18 0839 Iban Baldwin MD Jun 17, 2018 07:47
[2018-06-17 08:00] VITALS: BP 139/85
[2018-06-17] MEDS: Thiamine 100mg tab ORAL SCH (09:37)
[2018-06-17] MEDS: Tamsulosin 0.4mg cap ORAL SCH ×2 (09:37→17:01)
[2018-06-17] MEDS: Levemir Flexpen SUBQ SCH (09:48)
[2018-06-17 12:00] VITALS: BP 136/74
--- NOTE | 2018-06-17 12:03 | Nephrology Progress Note ---
Assessment/Plan Problem List: (1) Hyperglycemia (2) Alcohol dependence with withdrawal, uncomplicated Assessment DM OOC Sz disorder Alcohol dependencey Prostate cancer obese Plan glucophage DC Starlix now on levemir am and HS monitor BS and lytes med surg Subjective ROS Limited/Unobtainable: No Objective Objective Last 24 Hour Vital Signs Date Time Temp Pulse Resp B/P (MAP) Pulse Ox O2 Delivery O2 Flow Rate FiO2 06/17/18 12:00 97.9 74 18 136/74 (94) 96 06/17/18 09:37 76 139/85 06/17/18 09:00 Room Air 06/17/18 08:00 97.7 76 18 139/85 (103) 94 06/17/18 04:00 98.1 68 19 124/79 (94) 06/17/18 00:00 98.1 67 19 143/83 (103) 06/16/18 21:50 Room Air 06/16/18 20:00 98.8 83 18 129/77 (94) 06/16/18 16:35 98.1 83 20 145/83 (103) 97 Intake and Output 06/16/18 06/17/18 19:00 07:00 Intake Total 1360 ml 500 ml Output Total 900 ml Balance 460 ml 500 ml Intake Oral 960 ml IV Total 400 ml Other 500 ml Output Urine Total 900 ml # Voids 4 # Bowel Movements 2 Height (Feet): 5 Height (Inches): 4.00 Weight (Pounds): 195 General Appearance: no apparent distress Objective no change Nicolas Almaguer MD Jun 17, 2018 12:03
[2018-06-17 15:49] VITALS: BP 137/88
--- NOTE | 2018-06-17 18:16 | General Progress Note ---
Assessment/Plan Problem List: (1) Alcohol dependence with withdrawal, uncomplicated ICD Codes: F10.230 - Alcohol dependence with withdrawal, uncomplicated SNOMED: 16814330, 14236671 (2) Hyperglycemia ICD Codes: R73.9 - Hyperglycemia, unspecified SNOMED: 92282304, 05465135 Status: progressing Assessment/Plan hyperglycemia is getting better reviewed chart and labs etoh abuse lytes improving no dka s/p seizure Subjective ROS Limited/Unobtainable: Yes Allergies: Coded Allergies: No Known Allergies (Unverified , 05/21/18) Objective Last 24 Hour Vital Signs Date Time Temp Pulse Resp B/P (MAP) Pulse Ox O2 Delivery O2 Flow Rate FiO2 06/17/18 15:49 97.9 72 18 137/88 (104) 94 06/17/18 12:00 97.9 74 18 136/74 (94) 96 06/17/18 09:37 76 139/85 06/17/18 09:00 Room Air 06/17/18 08:00 97.7 76 18 139/85 (103) 94 06/17/18 04:00 98.1 68 19 124/79 (94) 06/17/18 00:00 98.1 67 19 143/83 (103) 06/16/18 21:50 Room Air 06/16/18 20:00 98.8 83 18 129/77 (94) Intake and Output 06/16/18 06/17/18 19:00 07:00 Intake Total 1360 ml 500 ml Output Total 900 ml Balance 460 ml 500 ml Intake Oral 960 ml IV Total 400 ml Other 500 ml Output Urine Total 900 ml # Voids 4 # Bowel Movements 2 Height (Feet): 5 Height (Inches): 4.00 Weight (Pounds): 195 Cardiovascular: normal rate Respiratory/Chest: lungs clear Abdomen: soft Micha Swenson MD Jun 17, 2018 18:16
--- NOTE | 2018-06-17 19:21 | NUR ---
HAND-OFF: Report given to ADÁN LAKE.
--- NOTE | 2018-06-17 19:37 | NUR ---
NURSE NOTES: Received patient sitting on chair watching TV. A/O x 4, on RA, no SOB, no acute distress, no c/o pain. 24G saline lock on L hand intact, patent. Bed in lowest position, locked, alarms on. Call light in reach.
[2018-06-17 20:00] VITALS: BP 134/81
[2018-06-17] MEDS: Atorvastatin 80mg tab ORAL SCH (20:17)
--- NOTE | 2018-06-17 22:33 | General Progress Note ---
Assessment/Plan Problem List: (1) Alcohol dependence with withdrawal, uncomplicated ICD Codes: F10.230 - Alcohol dependence with withdrawal, uncomplicated SNOMED: 10344501, 09454805 Assessment/Plan Valium 10mg 1 time folate thiamine Valium prn Subjective Neurologic/Psychiatric: Reports: anxiety, depressed Allergies: Coded Allergies: No Known Allergies (Unverified , 05/21/18) Objective Last 24 Hour Vital Signs Date Time Temp Pulse Resp B/P (MAP) Pulse Ox O2 Delivery O2 Flow Rate FiO2 06/17/18 21:00 Room Air 06/17/18 20:00 97.9 79 17 134/81 (98) 93 06/17/18 15:49 97.9 72 18 137/88 (104) 94 06/17/18 12:00 97.9 74 18 136/74 (94) 96 06/17/18 09:37 76 139/85 06/17/18 09:00 Room Air 06/17/18 08:00 97.7 76 18 139/85 (103) 94 06/17/18 04:00 98.1 68 19 124/79 (94) 06/17/18 00:00 98.1 67 19 143/83 (103) Intake and Output 06/16/18 06/17/18 19:00 07:00 Intake Total 1360 ml 500 ml Output Total 900 ml Balance 460 ml 500 ml Intake Oral 960 ml IV Total 400 ml Other 500 ml Output Urine Total 900 ml # Voids 4 # Bowel Movements 2 Height (Feet): 5 Height (Inches): 4.00 Weight (Pounds): 195 General Appearance: no apparent distress, alert Neurologic: oriented x 3, responsive, depressed affect Luiz Stuart MD Jun 17, 2018 22:33
[2018-06-18] VITALS: BP 137/75
[2018-06-18 04:00] VITALS: BP 151/72
[2018-06-18] MEDS: metFORMIN 500mg tab ORAL SCH ×3 (06:48→17:06)
[2018-06-18] MEDS: NovoLOG Insulin Flexpen SUBQ SCH ×7 (06:50→22:29)
--- NOTE | 2018-06-18 07:37 | NUR ---
HAND-OFF: Report given to Holli MCCAIN.
[2018-06-18 08:00] VITALS: BP 156/94
--- NOTE | 2018-06-18 08:07 | General Progress Note ---
Assessment/Plan Problem List: (1) Hyperglycemia ICD Codes: R73.9 - Hyperglycemia, unspecified SNOMED: 19789812, 15152028 (2) Alcohol dependence with withdrawal, uncomplicated ICD Codes: F10.230 - Alcohol dependence with withdrawal, uncomplicated SNOMED: 29095258, 27691380 Assessment/Plan continue Levemir 30 units qam continue Novolog to 8 units ac tid continue Metformin 500 mg tid continue NISS ac / hs Subjective Allergies: Coded Allergies: No Known Allergies (Unverified , 05/21/18) All Systems: reviewed and negative except above Subjective events noted doing fine glucose value in fair control: Item Value Date Time Bedside Blood Glucose 186 mg/dl H 06/18/18 0650 Bedside Blood Glucose 135 mg/dl H 06/17/18 2100 Bedside Blood Glucose 183 mg/dl H 06/17/18 1659 Bedside Blood Glucose 206 mg/dl H 06/17/18 1203 Bedside Blood Glucose 236 mg/dl H 06/17/18 0948 Bedside Blood Glucose 175 mg/dl H 06/17/18 0623 Objective Last 24 Hour Vital Signs Date Time Temp Pulse Resp B/P (MAP) Pulse Ox O2 Delivery O2 Flow Rate FiO2 06/18/18 04:00 98.0 71 18 151/72 (98) 95 06/18/18 00:00 98.2 63 17 137/75 (95) 97 06/17/18 21:00 Room Air 06/17/18 20:00 97.9 79 17 134/81 (98) 93 06/17/18 15:49 97.9 72 18 137/88 (104) 94 06/17/18 12:00 97.9 74 18 136/74 (94) 96 06/17/18 09:37 76 139/85 06/17/18 09:00 Room Air Intake and Output 06/17/18 06/18/18 18:59 06:59 Intake Total 720 ml 300 ml Balance 720 ml 300 ml Intake Oral 720 ml 300 ml # Voids 4 3 Height (Feet): 5 Height (Inches): 4.00 Weight (Pounds): 195 General Appearance: no apparent distress Neck: normal alignment Cardiovascular: normal rate Respiratory/Chest: lungs clear Abdomen: normal bowel sounds Objective Current Medications Medications (Trade) Dose Ordered Sig/Michelle Route PRN Reason Start Time Stop Time Status Last Admin Dose Admin Acetaminophen (Tylenol) 500 mg Q4H PRN ORAL Mild Pain/Temp > 100.5 06/14/18 15:00 07/13/18 14:59 Amlodipine Besylate (Norvasc) 5 mg DAILY ORAL 06/15/18 09:00 07/14/18 08:59 06/17/18 09:37 Atorvastatin Calcium (Lipitor) 40 mg BEDTIME ORAL 06/14/18 21:00 07/14/18 20:59 06/17/18 20:17 Dextrose (Dextrose 50%) 25 ml Q30M PRN IV Hypoglycemia 06/15/18 07:00 07/15/18 06:59 Dextrose (Dextrose 50%) 50 ml Q30M PRN IV Hypoglycemia 06/15/18 07:00 07/15/18 06:59 Diazepam (Valium) 10 mg Q6H PRN ORAL For Anxiety 06/14/18 15:00 06/21/18 14:59 Escitalopram Oxalate (Lexapro) 10 mg DAILY ORAL 06/15/18 09:00 07/14/18 08:59 06/17/18 09:37 Insulin Aspart (NovoLOG) BEFORE MEALS AND HS SUBQ 06/14/18 16:30 07/14/18 06:29 06/18/18 06:50 Insulin Aspart (NovoLOG) 8 units NOVOTIAC SUBQ 06/17/18 11:50 07/15/18 06:59 06/18/18 06:50 Insulin Detemir (Levemir) 30 units DAILY SUBQ 06/15/18 09:00 07/15/18 08:59 06/17/18 09:48 Levetiracetam (Keppra) 750 mg Q12HR ORAL 06/14/18 21:00 07/14/18 08:59 06/17/18 20:17 Metformin HCl (Glucophage) 500 mg TIAC ORAL 06/14/18 16:30 07/14/18 11:29 06/18/18 06:48 Pantoprazole (Protonix) 40 mg Q12HR ORAL 06/14/18 21:00 07/14/18 20:59 06/17/18 20:17 Tamsulosin HCl (Flomax) 0.4 mg BID ORAL 06/15/18 18:00 07/15/18 17:59 06/17/18 17:01 Thiamine HCl (Vitamin B1) 100 mg DAILY ORAL 06/15/18 09:00 07/14/18 12:44 06/17/18 09:37 Iban Baldwin MD Jun 18, 2018 08:07
[2018-06-18] MEDS: Tamsulosin 0.4mg cap ORAL SCH ×2 (08:41→17:07)
[2018-06-18] MEDS: Thiamine 100mg tab ORAL SCH (08:41)
[2018-06-18] MEDS: Levemir Flexpen SUBQ SCH (09:00)
[2018-06-18 12:00] VITALS: BP 155/83
--- NOTE | 2018-06-18 12:04 | Nephrology Progress Note ---
Assessment/Plan Problem List: (1) Hyperglycemia (2) Alcohol dependence with withdrawal, uncomplicated Assessment DM OOC Sz disorder Alcohol dependencey Prostate cancer obese Plan no labs- glucophage DC Starlix now on levemir am and HS monitor BS and lytes med surg Subjective ROS Limited/Unobtainable: No Constitutional: Reports: malaise Objective Objective Last 24 Hour Vital Signs Date Time Temp Pulse Resp B/P (MAP) Pulse Ox O2 Delivery O2 Flow Rate FiO2 06/18/18 09:00 Room Air 06/18/18 08:42 91 156/94 06/18/18 08:00 98.3 91 20 156/94 (114) 96 06/18/18 04:00 98.0 71 18 151/72 (98) 95 06/18/18 00:00 98.2 63 17 137/75 (95) 97 06/17/18 21:00 Room Air 06/17/18 20:00 97.9 79 17 134/81 (98) 93 06/17/18 15:49 97.9 72 18 137/88 (104) 94 Intake and Output 06/17/18 06/18/18 19:00 07:00 Intake Total 720 ml 300 ml Balance 720 ml 300 ml Intake Oral 720 ml 300 ml # Voids 4 3 Height (Feet): 5 Height (Inches): 4.00 Weight (Pounds): 195 General Appearance: no apparent distress Objective no change Nicolas Almaguer MD Jun 18, 2018 12:04
--- NOTE | 2018-06-18 12:45 | NUR ---
CASE MANAGEMENT: REVIEW 06/18/2018 SI: HYPERGLYCEMIA T 98.3 HR 91 RR 20 B/P 156/64 SATS 96% ON RA NO LABS TODAY IS: LIPITOR PO QHS FLOMAX PO BID NORVASC PO QD LEXAPRO PO QD INSULIN ASPART SUBQ AC/HS KEPPRA PO Q12H PROTONIX PO Q12H METFORMIN PO TIAC MED/SURG STATUS DCP: [facility]
[2018-06-18 16:00] VITALS: BP 159/84
--- NOTE | 2018-06-18 19:30 | NUR ---
HAND-OFF: Report given to ADÁN Collazo.
--- NOTE | 2018-06-18 19:45 | NUR ---
NURSE NOTES: Received patient sitting on bed. On RA, no SOB, no acute distress, no c/o pain. L hand saline lock intact, patent. Bed in lowest position, locked, alarms on. Call light in reach. In stable condition.
[2018-06-18 20:00] VITALS: BP 149/81
--- NOTE | 2018-06-18 21:20 | General Progress Note ---
Assessment/Plan Problem List: (1) Alcohol dependence with withdrawal, uncomplicated ICD Codes: F10.230 - Alcohol dependence with withdrawal, uncomplicated SNOMED: 09328346, 45054536 (2) Hyperglycemia ICD Codes: R73.9 - Hyperglycemia, unspecified SNOMED: 28820492, 77487325 Status: progressing Assessment/Plan hyperglycemia is getting better dc in am afebrile lytes improved Subjective ROS Limited/Unobtainable: Yes Allergies: Coded Allergies: No Known Allergies (Unverified , 05/21/18) Objective Last 24 Hour Vital Signs Date Time Temp Pulse Resp B/P (MAP) Pulse Ox O2 Delivery O2 Flow Rate FiO2 06/18/18 16:00 98.1 73 20 159/84 (109) 95 06/18/18 12:00 97.3 70 19 155/83 (107) 96 06/18/18 09:00 Room Air 06/18/18 08:42 91 156/94 06/18/18 08:00 98.3 91 20 156/94 (114) 96 06/18/18 04:00 98.0 71 18 151/72 (98) 95 06/18/18 00:00 98.2 63 17 137/75 (95) 97 Intake and Output 06/17/18 06/18/18 19:00 07:00 Intake Total 720 ml 300 ml Balance 720 ml 300 ml Intake Oral 720 ml 300 ml # Voids 4 3 Laboratory Tests 06/18/18 19:05: C-Reactive Protein, Quantitative < 0.4 Height (Feet): 5 Height (Inches): 4.00 Weight (Pounds): 195 Neck: supple Cardiovascular: normal rate Respiratory/Chest: lungs clear Micha Swenson MD Jun 18, 2018 21:20
--- NOTE | 2018-06-18 21:37 | General Progress Note ---
Assessment/Plan Problem List: (1) Alcohol dependence with withdrawal, uncomplicated ICD Codes: F10.230 - Alcohol dependence with withdrawal, uncomplicated SNOMED: 97554162, 67267111 Assessment/Plan Valium 10mg 1 time folate thiamine Valium prn Subjective Neurologic/Psychiatric: Reports: anxiety, depressed, emotional problems Allergies: Coded Allergies: No Known Allergies (Unverified , 05/21/18) Objective Last 24 Hour Vital Signs Date Time Temp Pulse Resp B/P (MAP) Pulse Ox O2 Delivery O2 Flow Rate FiO2 06/18/18 16:00 98.1 73 20 159/84 (109) 95 06/18/18 12:00 97.3 70 19 155/83 (107) 96 06/18/18 09:00 Room Air 06/18/18 08:42 91 156/94 06/18/18 08:00 98.3 91 20 156/94 (114) 96 06/18/18 04:00 98.0 71 18 151/72 (98) 95 06/18/18 00:00 98.2 63 17 137/75 (95) 97 Intake and Output 06/17/18 06/18/18 19:00 07:00 Intake Total 720 ml 300 ml Balance 720 ml 300 ml Intake Oral 720 ml 300 ml # Voids 4 3 Laboratory Tests 06/18/18 19:05: C-Reactive Protein, Quantitative < 0.4 Height (Feet): 5 Height (Inches): 4.00 Weight (Pounds): 195 General Appearance: no apparent distress, alert, agitated Luiz Stuart MD Jun 18, 2018 21:37
[2018-06-18] MEDS: Atorvastatin 80mg tab ORAL SCH (22:25)
[2018-06-19] VITALS: BP 142/79
[2018-06-19 04:00] VITALS: BP 160/80
[2018-06-19] MEDS: metFORMIN 500mg tab ORAL SCH ×3 (06:22→16:56)
[2018-06-19] MEDS: NovoLOG Insulin Flexpen SUBQ SCH ×7 (06:29→20:45)
[2018-06-19 06:43] LABS: BASOPHILS % (AUTO) 0.6 % (0.0-2.0); EOSINOPHILS % (AUTO) 3.4 % (0.0-3.0); HEMATOCRIT 43.9 % (42.0-52.0); HEMOGLOBIN 14.7 G/DL (14.2-18.0); LYMPHOCYTES % (AUTO) 22.5 % (20.0-45.0); MEAN CORPUSCULAR VOLUME 81 FL (80-99); MONOCYTES % (AUTO) 6.7 % (1.0-10.0); NEUTROPHILS % (AUTO) 66.8 % (45.0-75.0); PLATELET COUNT 246 K/UL (150-450); RED BLOOD COUNT 5.39 M/UL (4.70-6.10); RED CELL DISTRIBUTION WIDTH 14.6 % (11.6-14.8); WHITE BLOOD COUNT 6.7 K/UL (4.8-10.8)
--- NOTE | 2018-06-19 07:01 | General Progress Note ---
Assessment/Plan Problem List: (1) Hyperglycemia ICD Codes: R73.9 - Hyperglycemia, unspecified SNOMED: 48810067, 72316560 (2) Alcohol dependence with withdrawal, uncomplicated ICD Codes: F10.230 - Alcohol dependence with withdrawal, uncomplicated SNOMED: 32961852, 44809140 Assessment/Plan continue Levemir 30 units qam continue Novolog to 8 units ac tid continue Metformin 500 mg tid continue NISS ac / hs Subjective Allergies: Coded Allergies: No Known Allergies (Unverified , 05/21/18) All Systems: reviewed and negative except above Subjective events noted Item Value Date Time Bedside Blood Glucose 157 mg/dl H 06/19/18 0629 Bedside Blood Glucose 239 mg/dl H 06/18/18 2229 Bedside Blood Glucose 119 mg/dl 06/18/18 1712 Bedside Blood Glucose 208 mg/dl H 06/18/18 1318 Bedside Blood Glucose 186 mg/dl H 06/18/18 0900 Bedside Blood Glucose 186 mg/dl H 06/18/18 0650 Objective Last 24 Hour Vital Signs Date Time Temp Pulse Resp B/P (MAP) Pulse Ox O2 Delivery O2 Flow Rate FiO2 06/19/18 04:00 98.1 65 19 160/80 (106) 96 06/19/18 00:00 98.1 63 19 142/79 (100) 97 06/18/18 21:00 Room Air 06/18/18 20:00 98.1 61 20 149/81 (103) 97 06/18/18 16:00 98.1 73 20 159/84 (109) 95 06/18/18 12:00 97.3 70 19 155/83 (107) 96 06/18/18 09:00 Room Air 06/18/18 08:42 91 156/94 06/18/18 08:00 98.3 91 20 156/94 (114) 96 Intake and Output 06/18/18 06/19/18 19:00 07:00 Intake Total 700 ml 500 ml Balance 700 ml 500 ml Intake Oral 700 ml 500 ml # Voids 3 3 # Bowel Movements 1 Laboratory Tests 06/18/18 19:05: C-Reactive Protein, Quantitative < 0.4 06/19/18 05:30: White Blood Count 6.7, Red Blood Count 5.39, Hemoglobin 14.7, Hematocrit 43.9, Mean Corpuscular Volume 81, Mean Corpuscular Hemoglobin 27.2, Mean Corpuscular Hemoglobin Concent 33.4, Red Cell Distribution Width 14.6, Platelet Count 246, Mean Platelet Volume 8.9, Neutrophils (%) (Auto) 66.8, Lymphocytes (%) (Auto) 22.5, Monocytes (%) (Auto) 6.7, Eosinophils (%) (Auto) 3.4H, Basophils (%) (Auto ) 0.6, Sodium Level [Pending], Potassium Level [Pending], Chloride Level [ Pending], Carbon Dioxide Level [Pending], Blood Urea Nitrogen [Pending], Creatinine [Pending], Estimat Glomerular Filtration Rate [Pending], Glucose Level [Pending], Uric Acid [Pending], Calcium Level [Pending], Phosphorus Level [Pending], Magnesium Level [Pending], Total Bilirubin [Pending], Aspartate Amino Transf (AST/SGOT) [Pending], Alanine Aminotransferase (ALT/SGPT) [Pending] , Alkaline Phosphatase [Pending], Total Creatine Kinase [Pending], Pro-B-Type Natriuretic Peptide [Pending], Total Protein [Pending], Albumin [Pending], Globulin [Pending] Height (Feet): 5 Height (Inches): 4.00 Weight (Pounds): 195 General Appearance: no apparent distress Neck: normal alignment Cardiovascular: normal rate Respiratory/Chest: lungs clear Abdomen: normal bowel sounds Pelvis: normal external exam Objective Current Medications Medications (Trade) Dose Ordered Sig/Michelle Route PRN Reason Start Time Stop Time Status Last Admin Dose Admin Acetaminophen (Tylenol) 500 mg Q4H PRN ORAL Mild Pain/Temp > 100.5 06/14/18 15:00 07/13/18 14:59 06/18/18 23:56 Amlodipine Besylate (Norvasc) 5 mg DAILY ORAL 06/15/18 09:00 07/14/18 08:59 06/18/18 08:42 Atorvastatin Calcium (Lipitor) 40 mg BEDTIME ORAL 06/14/18 21:00 07/14/18 20:59 06/18/18 22:25 Dextrose (Dextrose 50%) 25 ml Q30M PRN IV Hypoglycemia 06/15/18 07:00 07/15/18 06:59 Dextrose (Dextrose 50%) 50 ml Q30M PRN IV Hypoglycemia 06/15/18 07:00 07/15/18 06:59 Diazepam (Valium) 10 mg Q6H PRN ORAL For Anxiety 06/14/18 15:00 06/21/18 14:59 Escitalopram Oxalate (Lexapro) 10 mg DAILY ORAL 06/15/18 09:00 07/14/18 08:59 06/18/18 08:41 Insulin Aspart (NovoLOG) BEFORE MEALS AND HS SUBQ 06/14/18 16:30 07/14/18 06:29 06/19/18 06:29 Insulin Aspart (NovoLOG) 8 units NOVOTIAC SUBQ 06/17/18 11:50 07/15/18 06:59 06/19/18 06:29 Insulin Detemir (Levemir) 30 units DAILY SUBQ 06/15/18 09:00 07/15/18 08:59 06/18/18 09:00 Levetiracetam (Keppra) 750 mg Q12HR ORAL 06/14/18 21:00 07/14/18 08:59 06/18/18 22:25 Metformin HCl (Glucophage) 500 mg TIAC ORAL 06/14/18 16:30 07/14/18 11:29 06/19/18 06:22 Pantoprazole (Protonix) 40 mg Q12HR ORAL 06/14/18 21:00 07/14/18 20:59 06/18/18 22:25 Tamsulosin HCl (Flomax) 0.4 mg BID ORAL 06/15/18 18:00 07/15/18 17:59 06/18/18 17:07 Thiamine HCl (Vitamin B1) 100 mg DAILY ORAL 06/15/18 09:00 07/14/18 12:44 06/18/18 08:41 Iban Baldwin MD Jun 19, 2018 07:01
[2018-06-19 07:08] LABS: CREATINE KINASE 63 U/L (26-308)
[2018-06-19 07:09] LABS: ALANINE AMINOTRANSFERASE 22 U/L (12-78); ALBUMIN 3.7 G/DL (3.4-5.0); ALBUMIN/GLOBULIN RATIO 0.9 (1.0-2.7); ALKALINE PHOSPHATASE 102 U/L (46-116); ANION GAP 8 mmol/L (5-15); ASPARTATE AMINO TRANSFERASE 15 U/L (15-37); BILIRUBIN,TOTAL 0.3 MG/DL (0.2-1.0); BLOOD UREA NITROGEN 10 mg/dL (7-18); CALCIUM 9.2 MG/DL (8.5-10.1); CARBON DIOXIDE 31 MMOL/L (21-32); CHLORIDE 101 MMOL/L (98-107); CREATININE 0.8 MG/DL (0.55-1.30); PHOSPHORUS 4.4 MG/DL (2.5-4.9); POTASSIUM 3.7 MMOL/L (3.5-5.1); SODIUM 140 MMOL/L (136-145)
--- NOTE | 2018-06-19 07:24 | NUR ---
HAND-OFF: Report given to ADÁN De La Garza.
[2018-06-19 08:00] VITALS: BP 161/92
[2018-06-19] MEDS: Tamsulosin 0.4mg cap ORAL SCH ×2 (08:56→18:19)
[2018-06-19] MEDS: Thiamine 100mg tab ORAL SCH (08:56)
[2018-06-19] MEDS: Levemir Flexpen SUBQ SCH (08:59)
--- NOTE | 2018-06-19 10:47 | General Progress Note ---
Assessment/Plan Problem List: (1) Alcohol dependence with withdrawal, uncomplicated ICD Codes: F10.230 - Alcohol dependence with withdrawal, uncomplicated SNOMED: 48979004, 36861317 Assessment/Plan Valium 10mg 1 time folate thiamine Valium prn Subjective Neurologic/Psychiatric: Reports: anxiety, depressed, emotional problems Allergies: Coded Allergies: No Known Allergies (Unverified , 05/21/18) Objective Last 24 Hour Vital Signs Date Time Temp Pulse Resp B/P (MAP) Pulse Ox O2 Delivery O2 Flow Rate FiO2 06/19/18 09:00 Room Air 06/19/18 08:56 79 161/92 06/19/18 08:00 98.1 79 20 161/92 (115) 98 06/19/18 04:00 98.1 65 19 160/80 (106) 96 06/19/18 00:00 98.1 63 19 142/79 (100) 97 06/18/18 21:00 Room Air 06/18/18 20:00 98.1 61 20 149/81 (103) 97 06/18/18 16:00 98.1 73 20 159/84 (109) 95 06/18/18 12:00 97.3 70 19 155/83 (107) 96 Intake and Output 06/18/18 06/19/18 18:59 06:59 Intake Total 700 ml 500 ml Balance 700 ml 500 ml Intake Oral 700 ml 500 ml # Voids 3 3 # Bowel Movements 1 Laboratory Tests 06/18/18 19:05: C-Reactive Protein, Quantitative < 0.4 06/19/18 05:30: White Blood Count 6.7, Red Blood Count 5.39, Hemoglobin 14.7, Hematocrit 43.9, Mean Corpuscular Volume 81, Mean Corpuscular Hemoglobin 27.2, Mean Corpuscular Hemoglobin Concent 33.4, Red Cell Distribution Width 14.6, Platelet Count 246, Mean Platelet Volume 8.9, Neutrophils (%) (Auto) 66.8, Lymphocytes (%) (Auto) 22.5, Monocytes (%) (Auto) 6.7, Eosinophils (%) (Auto) 3.4H, Basophils (%) (Auto ) 0.6, Sodium Level 140, Potassium Level 3.7, Chloride Level 101, Carbon Dioxide Level 31, Anion Gap 8, Blood Urea Nitrogen 10, Creatinine 0.8, Estimat Glomerular Filtration Rate > 60, Glucose Level 166H, Uric Acid 2.4L, Calcium Level 9.2, Phosphorus Level 4.4, Magnesium Level 1.5L, Total Bilirubin 0.3, Aspartate Amino Transf (AST/SGOT) 15, Alanine Aminotransferase (ALT/SGPT) 22, Alkaline Phosphatase 102, Total Creatine Kinase 63, Pro-B-Type Natriuretic Peptide 40, Total Protein 7.6, Albumin 3.7, Globulin 3.9, Albumin/Globulin Ratio 0.9L Height (Feet): 5 Height (Inches): 4.00 Weight (Pounds): 195 General Appearance: no apparent distress, alert, obese Neurologic: oriented x 3, responsive, depressed affect Luiz Stuart MD Jun 19, 2018 10:47
[2018-06-19 12:00] VITALS: BP 144/81
[2018-06-19] MEDS ORDERED: Lisinopril 10mg tab ORAL SCH (13:00)
--- NOTE | 2018-06-19 13:00 | Nephrology Progress Note ---
Assessment/Plan Problem List: (1) Hyperglycemia (2) Alcohol dependence with withdrawal, uncomplicated (3) HTN (hypertension) Assessment DM OOC Sz disorder Alcohol dependencey Prostate cancer obese Plan adjust bp meds glucophage DC Starlix now on levemir am and HS monitor BS and lytes med surg Subjective ROS Limited/Unobtainable: No Constitutional: Reports: malaise Objective Objective Last 24 Hour Vital Signs Date Time Temp Pulse Resp B/P (MAP) Pulse Ox O2 Delivery O2 Flow Rate FiO2 06/19/18 09:00 Room Air 06/19/18 08:56 79 161/92 06/19/18 08:00 98.1 79 20 161/92 (115) 98 06/19/18 04:00 98.1 65 19 160/80 (106) 96 06/19/18 00:00 98.1 63 19 142/79 (100) 97 06/18/18 21:00 Room Air 06/18/18 20:00 98.1 61 20 149/81 (103) 97 06/18/18 16:00 98.1 73 20 159/84 (109) 95 Intake and Output 06/18/18 06/19/18 18:59 06:59 Intake Total 700 ml 500 ml Balance 700 ml 500 ml Intake Oral 700 ml 500 ml # Voids 3 3 # Bowel Movements 1 Laboratory Tests 06/18/18 19:05: C-Reactive Protein, Quantitative < 0.4 06/19/18 05:30: White Blood Count 6.7, Red Blood Count 5.39, Hemoglobin 14.7, Hematocrit 43.9, Mean Corpuscular Volume 81, Mean Corpuscular Hemoglobin 27.2, Mean Corpuscular Hemoglobin Concent 33.4, Red Cell Distribution Width 14.6, Platelet Count 246, Mean Platelet Volume 8.9, Neutrophils (%) (Auto) 66.8, Lymphocytes (%) (Auto) 22.5, Monocytes (%) (Auto) 6.7, Eosinophils (%) (Auto) 3.4H, Basophils (%) (Auto ) 0.6, Sodium Level 140, Potassium Level 3.7, Chloride Level 101, Carbon Dioxide Level 31, Anion Gap 8, Blood Urea Nitrogen 10, Creatinine 0.8, Estimat Glomerular Filtration Rate > 60, Glucose Level 166H, Uric Acid 2.4L, Calcium Level 9.2, Phosphorus Level 4.4, Magnesium Level 1.5L, Total Bilirubin 0.3, Aspartate Amino Transf (AST/SGOT) 15, Alanine Aminotransferase (ALT/SGPT) 22, Alkaline Phosphatase 102, Total Creatine Kinase 63, Pro-B-Type Natriuretic Peptide 40, Total Protein 7.6, Albumin 3.7, Globulin 3.9, Albumin/Globulin Ratio 0.9L Height (Feet): 5 Height (Inches): 4.00 Weight (Pounds): 195 General Appearance: no apparent distress Objective no change Nicolas Almaguer MD Jun 19, 2018 13:00
--- NOTE | 2018-06-19 13:00 | NUR ---
Social Service Note TOMMY confirmed with the [facility] for [facility] program at the [facility] that patient was exited from the program and is not able to return. Program provided TOMMY the contact number of [facility] [phone] at [facility] who is monitoring patient's placement. Per [facility] indicated that patient requires a higher level of care then a Recuperative [facility] setting for patient. TOMMY spoke with nurse coordinator [facility] [phone] (p) [phone] (f). Patient's information faxed for review. Per [facility] placement could take 2-3 days. TOMMY requested from charge nurse to obtain prescriptions to be filled prior to discharge. TOMMY confirmed faxed was received and is being reviewed.
[2018-06-19 16:00] VITALS: BP 147/78
--- NOTE | 2018-06-19 18:20 | Consultation ---
History of Present Illness General Chief Complaint: General Complaint Present Illness Allergies: Coded Allergies: No Known Allergies (Unverified , 05/21/18) Medication History Scheduled Atorvastatin Calcium* (Lipitor*), 40 MG ORAL BEDTIME, (Reported) Omeprazole (Omeprazole), 20 MG ORAL DAILY, (Reported) Miscellaneous Medications Levetiracetam (Keppra), 750 MG ORAL, (Reported) [Revia], (Reported) [norvasc], (Reported) Patient History Healthcare decision maker Resuscitation status Full Code Advanced Directive on File No Physical Exam Last 24 Hour Vital Signs Date Time Temp Pulse Resp B/P (MAP) Pulse Ox O2 Delivery O2 Flow Rate FiO2 06/19/18 13:42 161/92 06/19/18 12:00 98.2 70 20 144/81 (102) 94 06/19/18 09:00 Room Air 06/19/18 08:56 79 161/92 06/19/18 08:00 98.1 79 20 161/92 (115) 98 06/19/18 04:00 98.1 65 19 160/80 (106) 96 06/19/18 00:00 98.1 63 19 142/79 (100) 97 06/18/18 21:00 Room Air 06/18/18 20:00 98.1 61 20 149/81 (103) 97 Intake and Output 06/18/18 06/19/18 19:00 07:00 Intake Total 700 ml 500 ml Balance 700 ml 500 ml Intake Oral 700 ml 500 ml # Voids 3 3 # Bowel Movements 1 Laboratory Tests Test 06/18/18 19:05 06/19/18 05:30 C-Reactive Protein, Quantitative < 0.4 mg/dL (0.00-0.90) White Blood Count 6.7 K/UL (4.8-10.8) Red Blood Count 5.39 M/UL (4.70-6.10) Hemoglobin 14.7 G/DL (14.2-18.0) Hematocrit 43.9 % (42.0-52.0) Mean Corpuscular Volume 81 FL (80-99) Mean Corpuscular Hemoglobin 27.2 PG (27.0-31.0) Mean Corpuscular Hemoglobin Concent 33.4 G/DL (32.0-36.0) Red Cell Distribution Width 14.6 % (11.6-14.8) Platelet Count 246 K/UL (150-450) Mean Platelet Volume 8.9 FL (6.5-10.1) Neutrophils (%) (Auto) 66.8 % (45.0-75.0) Lymphocytes (%) (Auto) 22.5 % (20.0-45.0) Monocytes (%) (Auto) 6.7 % (1.0-10.0) Eosinophils (%) (Auto) 3.4 % (0.0-3.0) H Basophils (%) (Auto) 0.6 % (0.0-2.0) Sodium Level 140 MMOL/L (136-145) Potassium Level 3.7 MMOL/L (3.5-5.1) Chloride Level 101 MMOL/L (98-107) Carbon Dioxide Level 31 MMOL/L (21-32) Anion Gap 8 mmol/L (5-15) Blood Urea Nitrogen 10 mg/dL (7-18) Creatinine 0.8 MG/DL (0.55-1.30) Estimat Glomerular Filtration Rate > 60 mL/min (>60) Glucose Level 166 MG/DL (74-106) H Uric Acid 2.4 MG/DL (2.6-7.2) L Calcium Level 9.2 MG/DL (8.5-10.1) Phosphorus Level 4.4 MG/DL (2.5-4.9) Magnesium Level 1.5 MG/DL (1.8-2.4) L Total Bilirubin 0.3 MG/DL (0.2-1.0) Aspartate Amino Transf (AST/SGOT) 15 U/L (15-37) Alanine Aminotransferase (ALT/SGPT) 22 U/L (12-78) Alkaline Phosphatase 102 U/L (46-116) Total Creatine Kinase 63 U/L (26-308) Pro-B-Type Natriuretic Peptide 40 pg/mL (0-125) Total Protein 7.6 G/DL (6.4-8.2) Albumin 3.7 G/DL (3.4-5.0) Globulin 3.9 g/dL Albumin/Globulin Ratio 0.9 (1.0-2.7) L Height (Feet): 5 Height (Inches): 4.00 Weight (Pounds): 195 Medications Current Medications Medications (Trade) Dose Ordered Sig/Michelle Route PRN Reason Start Time Stop Time Status Last Admin Dose Admin Acetaminophen (Tylenol) 500 mg Q4H PRN ORAL Mild Pain/Temp > 100.5 06/14/18 15:00 07/13/18 14:59 06/18/18 23:56 Amlodipine Besylate (Norvasc) 10 mg DAILY ORAL 06/20/18 09:00 07/14/18 08:59 Atorvastatin Calcium (Lipitor) 40 mg BEDTIME ORAL 06/14/18 21:00 07/14/18 20:59 06/18/18 22:25 Dextrose (Dextrose 50%) 25 ml Q30M PRN IV Hypoglycemia 06/15/18 07:00 07/15/18 06:59 Dextrose (Dextrose 50%) 50 ml Q30M PRN IV Hypoglycemia 06/15/18 07:00 07/15/18 06:59 Diazepam (Valium) 10 mg Q6H PRN ORAL For Anxiety 06/14/18 15:00 06/21/18 14:59 Escitalopram Oxalate (Lexapro) 10 mg DAILY ORAL 06/15/18 09:00 07/14/18 08:59 06/19/18 08:57 Insulin Aspart (NovoLOG) BEFORE MEALS AND HS SUBQ 06/14/18 16:30 07/14/18 06:29 06/19/18 13:44 Insulin Aspart (NovoLOG) 8 units NOVOTIAC SUBQ 06/17/18 11:50 07/15/18 06:59 06/19/18 13:45 Insulin Detemir (Levemir) 30 units DAILY SUBQ 06/15/18 09:00 07/15/18 08:59 06/19/18 08:59 Levetiracetam (Keppra) 750 mg Q12HR ORAL 06/14/18 21:00 07/14/18 08:59 06/19/18 08:56 Lisinopril (Zestril) 10 mg DAILY ORAL 06/20/18 09:00 07/20/18 08:59 Metformin HCl (Glucophage) 500 mg TIAC ORAL 06/14/18 16:30 07/14/18 11:29 06/19/18 16:56 Pantoprazole (Protonix) 40 mg Q12HR ORAL 06/14/18 21:00 07/14/18 20:59 06/19/18 08:56 Tamsulosin HCl (Flomax) 0.4 mg BID ORAL 06/15/18 18:00 07/15/18 17:59 06/19/18 08:56 Thiamine HCl (Vitamin B1) 100 mg DAILY ORAL 06/15/18 09:00 07/14/18 12:44 06/19/18 08:56 Assessment/Plan Assessment/Plan Hematology Consultation Note REQ MD: Micha Swenson RFC: prostate cancer DOS: 06/19/18 Chief Complaint: General Complaint ID 63-year-old male presents to the emergency department complaining of feeling shaky and as though he is on the verge of having a seizure. Patient reports history of seizures states that he takes Keppra and he has been taking his medication however he feels a "aura" which she describes as feeling nervous and having ringing in the ear on the left side. He denies nausea, vomiting, abdominal pain, sudden onset headache, dizziness, syncope, altered mental status or fever/chills. The patient has a history of diabetes requiring insulin any states that he does not take his insulin as he feels that it makes him feel "as though he did a bunch of cocaine "therefore he has self DC'd from a medication in 2010 according to the patient. This patient also reports history of alcohol abuse and dependence and states that the last 3 days he has been trying to cut back. Patient states that he went from drinking a 40oz + a pint of hard liquor per/day down to one 40oz per day and he states that his last intake was yesterday and he had a beer. Patient denies agitation. Has been started on antidm meds, close to discharge, but does have a psa 19.7 Allergies: No Known Allergies (Unverified , 05/21/18) Past Medical History: see triage record, DM, seizures, other - ETOH W/D, Brain surgery Past Surgical History: none Pertinent Family History: none Reviewed Nursing Documentation: PMH: Agreed; PSxH: Agreed Past Medical History: No History, Except For Hx Diabetes: Yes Hx Cancer: Yes - prostate Hx Seizures: Yes Review of Systems: negative except mentioned in HPI Physical Exam: Last 24 Hour Vital Signs Date Time Temp Pulse Resp B/P (MAP) Pulse Ox O2 Delivery O2 Flow Rate FiO2 06/19/18 13:42 161/92 06/19/18 12:00 98.2 70 20 144/81 (102) 94 06/19/18 09:00 Room Air 06/19/18 08:56 79 161/92 06/19/18 08:00 98.1 79 20 161/92 (115) 98 06/19/18 04:00 98.1 65 19 160/80 (106) 96 06/19/18 00:00 98.1 63 19 142/79 (100) 97 06/18/18 21:00 Room Air 06/18/18 20:00 98.1 61 20 149/81 (103) 97 Sp02: reviewed, normal General Appearance: alert, derate distress - pt. shaky/ nervous Head: normocephalic Eyes: bilateral eye normal inspection, bilateral eye PERR ENT: hearing grossly normal, normal voice Neck: full range of motion, no bony tend Respiratory: lungs clear, normal breath sounds Cardiovascular #1: regular rate, rhythm Gastrointestinal: normal bowel sounds, non tender, soft Musculoskeletal: back normal Neurologic: alert, oriented x3, responsive Psychiatric: judgement/insight normal Skin: normal color, no rash, warm/dry Laboratory Tests Test 06/18/18 19:05 06/19/18 05:30 C-Reactive Protein, Quantitative < 0.4 mg/dL (0.00-0.90) White Blood Count 6.7 K/UL (4.8-10.8) Red Blood Count 5.39 M/UL (4.70-6.10) Hemoglobin 14.7 G/DL (14.2-18.0) Hematocrit 43.9 % (42.0-52.0) Mean Corpuscular Volume 81 FL (80-99) Mean Corpuscular Hemoglobin 27.2 PG (27.0-31.0) Mean Corpuscular Hemoglobin Concent 33.4 G/DL (32.0-36.0) Red Cell Distribution Width 14.6 % (11.6-14.8) Platelet Count 246 K/UL (150-450) Mean Platelet Volume 8.9 FL (6.5-10.1) Neutrophils (%) (Auto) 66.8 % (45.0-75.0) Lymphocytes (%) (Auto) 22.5 % (20.0-45.0) Monocytes (%) (Auto) 6.7 % (1.0-10.0) Eosinophils (%) (Auto) 3.4 % (0.0-3.0) H Basophils (%) (Auto) 0.6 % (0.0-2.0) Sodium Level 140 MMOL/L (136-145) Potassium Level 3.7 MMOL/L (3.5-5.1) Chloride Level 101 MMOL/L (98-107) Carbon Dioxide Level 31 MMOL/L (21-32) Anion Gap 8 mmol/L (5-15) Blood Urea Nitrogen 10 mg/dL (7-18) Creatinine 0.8 MG/DL (0.55-1.30) Estimat Glomerular Filtration Rate > 60 mL/min (>60) Glucose Level 166 MG/DL (74-106) H Uric Acid 2.4 MG/DL (2.6-7.2) L Calcium Level 9.2 MG/DL (8.5-10.1) Phosphorus Level 4.4 MG/DL (2.5-4.9) Magnesium Level 1.5 MG/DL (1.8-2.4) L Total Bilirubin 0.3 MG/DL (0.2-1.0) Aspartate Amino Transf (AST/SGOT) 15 U/L (15-37) Alanine Aminotransferase (ALT/SGPT) 22 U/L (12-78) Alkaline Phosphatase 102 U/L (46-116) Total Creatine Kinase 63 U/L (26-308) Pro-B-Type Natriuretic Peptide 40 pg/mL (0-125) Total Protein 7.6 G/DL (6.4-8.2) Albumin 3.7 G/DL (3.4-5.0) Globulin 3.9 g/dL Albumin/Globulin Ratio 0.9 (1.0-2.7) L Assessment and Recs: # Prostate cancer - with a elevated psa of 19.7, no known history of malignancy --> trend psa in the future --> recommend obtain repeat biopsy of the prostate with uro --> outpatient bone scan to make sure no mets noted --> needs f/u for this as outpatient with onc or uro # ANemia of chronic disease --> currently stabilized, improved since admission # Alcohol dependence with withdrawal, uncomplicated ==> improved through admission # Hyperglycemia ==> seen by endo and improved on iss, accuchecks and insulin # Syncopal episode likely hypovolemia related The timing of this note does not necessarily reflect the time of the patient was seen. Greatly appreciate consultation! Elmer Woodward MD Jun 19, 2018 18:20
--- NOTE | 2018-06-19 19:44 | NUR ---
HAND-OFF: Report given to ADÁN Collazo.
[2018-06-19 20:00] VITALS: BP 127/72
--- NOTE | 2018-06-19 20:00 | NUR ---
NURSE NOTES: Received patient in bed. On RA, no SOB, no acute distress. IV saline lock intact patent on L hand. No c/o pain, in stable condition. Bed in lowest position, locked, alarms on. Call light in reach.
[2018-06-19] MEDS: Atorvastatin 80mg tab ORAL SCH (20:42)
--- NOTE | 2018-06-19 21:28 | General Progress Note ---
Assessment/Plan Problem List: (1) Alcohol dependence with withdrawal, uncomplicated ICD Codes: F10.230 - Alcohol dependence with withdrawal, uncomplicated SNOMED: 84111792, 67748763 (2) Hyperglycemia ICD Codes: R73.9 - Hyperglycemia, unspecified SNOMED: 16176213, 88043162 Status: progressing Assessment/Plan hyperglycemia is getting better gave order to dc today no acute events Subjective ROS Limited/Unobtainable: Yes Allergies: Coded Allergies: No Known Allergies (Unverified , 05/21/18) Objective Last 24 Hour Vital Signs Date Time Temp Pulse Resp B/P (MAP) Pulse Ox O2 Delivery O2 Flow Rate FiO2 06/19/18 16:00 97.3 81 20 147/78 (101) 95 06/19/18 13:42 161/92 06/19/18 12:00 98.2 70 20 144/81 (102) 94 06/19/18 09:00 Room Air 06/19/18 08:56 79 161/92 06/19/18 08:00 98.1 79 20 161/92 (115) 98 06/19/18 04:00 98.1 65 19 160/80 (106) 96 06/19/18 00:00 98.1 63 19 142/79 (100) 97 Intake and Output 06/18/18 06/19/18 19:00 07:00 Intake Total 700 ml 500 ml Balance 700 ml 500 ml Intake Oral 700 ml 500 ml # Voids 3 3 # Bowel Movements 1 Laboratory Tests 06/19/18 05:30: White Blood Count 6.7, Red Blood Count 5.39, Hemoglobin 14.7, Hematocrit 43.9, Mean Corpuscular Volume 81, Mean Corpuscular Hemoglobin 27.2, Mean Corpuscular Hemoglobin Concent 33.4, Red Cell Distribution Width 14.6, Platelet Count 246, Mean Platelet Volume 8.9, Neutrophils (%) (Auto) 66.8, Lymphocytes (%) (Auto) 22.5, Monocytes (%) (Auto) 6.7, Eosinophils (%) (Auto) 3.4H, Basophils (%) (Auto ) 0.6, Sodium Level 140, Potassium Level 3.7, Chloride Level 101, Carbon Dioxide Level 31, Anion Gap 8, Blood Urea Nitrogen 10, Creatinine 0.8, Estimat Glomerular Filtration Rate > 60, Glucose Level 166H, Uric Acid 2.4L, Calcium Level 9.2, Phosphorus Level 4.4, Magnesium Level 1.5L, Total Bilirubin 0.3, Aspartate Amino Transf (AST/SGOT) 15, Alanine Aminotransferase (ALT/SGPT) 22, Alkaline Phosphatase 102, Total Creatine Kinase 63, Pro-B-Type Natriuretic Peptide 40, Total Protein 7.6, Albumin 3.7, Globulin 3.9, Albumin/Globulin Ratio 0.9L Height (Feet): 5 Height (Inches): 4.00 Weight (Pounds): 195 Neck: supple Cardiovascular: normal rate Respiratory/Chest: lungs clear Abdomen: soft Micha Swenson MD Jun 19, 2018 21:28
[2018-06-20] VITALS: BP 148/86
[2018-06-20 04:00] VITALS: BP 117/74
[2018-06-20] MEDS: metFORMIN 500mg tab ORAL SCH ×3 (06:31→17:01)
[2018-06-20] MEDS: NovoLOG Insulin Flexpen SUBQ SCH ×7 (06:34→21:00)
--- NOTE | 2018-06-20 06:45 | General Progress Note ---
Assessment/Plan Problem List: (1) Hyperglycemia ICD Codes: R73.9 - Hyperglycemia, unspecified SNOMED: 44641524, 13149278 (2) Alcohol dependence with withdrawal, uncomplicated ICD Codes: F10.230 - Alcohol dependence with withdrawal, uncomplicated SNOMED: 46645340, 05577816 Assessment/Plan continue Levemir 30 units qam continue Novolog to 8 units ac tid continue Metformin 500 mg tid continue NISS ac / hs Subjective Allergies: Coded Allergies: No Known Allergies (Unverified , 05/21/18) All Systems: reviewed and negative except above Subjective events noted fair glycemic control Item Value Date Time Bedside Blood Glucose 136 mg/dl H 06/20/18 0634 Bedside Blood Glucose 112 mg/dl 06/19/18 2100 Bedside Blood Glucose 132 mg/dl H 06/19/18 1824 Bedside Blood Glucose 116 mg/dl 06/19/18 1345 Bedside Blood Glucose 157 mg/dl H 06/19/18 0629 Objective Last 24 Hour Vital Signs Date Time Temp Pulse Resp B/P (MAP) Pulse Ox O2 Delivery O2 Flow Rate FiO2 06/20/18 04:00 98.0 79 22 117/74 (88) 96 06/20/18 00:00 98.1 87 22 148/86 (106) 96 06/19/18 21:00 Room Air 06/19/18 20:00 98.6 94 20 127/72 (90) 96 06/19/18 16:00 97.3 81 20 147/78 (101) 95 06/19/18 13:42 161/92 06/19/18 12:00 98.2 70 20 144/81 (102) 94 06/19/18 09:00 Room Air 06/19/18 08:56 79 161/92 06/19/18 08:00 98.1 79 20 161/92 (115) 98 Intake and Output 06/19/18 06/20/18 19:00 07:00 Intake Total 480 ml 750 ml Output Total 700 ml Balance 480 ml 50 ml Intake Oral 480 ml 750 ml Output Urine Total 700 ml # Voids 3 # Bowel Movements 2 Height (Feet): 5 Height (Inches): 4.00 Weight (Pounds): 195 General Appearance: no apparent distress Neck: normal alignment Cardiovascular: normal rate Respiratory/Chest: normal breath sounds Abdomen: normal bowel sounds Pelvis: normal external exam Edema: no edema noted Arm (L), no edema noted Arm (R), no edema noted Leg (L), no edema noted Leg (R), no edema noted Pedal (L), no edema noted Pedal (R), no edema noted Generalized Objective Current Medications Medications (Trade) Dose Ordered Sig/Michelle Route PRN Reason Start Time Stop Time Status Last Admin Dose Admin Acetaminophen (Tylenol) 500 mg Q4H PRN ORAL Mild Pain/Temp > 100.5 06/14/18 15:00 07/13/18 14:59 06/18/18 23:56 Amlodipine Besylate (Norvasc) 10 mg DAILY ORAL 06/20/18 09:00 07/14/18 08:59 Atorvastatin Calcium (Lipitor) 40 mg BEDTIME ORAL 06/14/18 21:00 07/14/18 20:59 06/19/18 20:42 Dextrose (Dextrose 50%) 25 ml Q30M PRN IV Hypoglycemia 06/15/18 07:00 07/15/18 06:59 Dextrose (Dextrose 50%) 50 ml Q30M PRN IV Hypoglycemia 06/15/18 07:00 07/15/18 06:59 Diazepam (Valium) 10 mg Q6H PRN ORAL For Anxiety 06/14/18 15:00 06/21/18 14:59 Escitalopram Oxalate (Lexapro) 10 mg DAILY ORAL 06/15/18 09:00 07/14/18 08:59 06/19/18 08:57 Insulin Aspart (NovoLOG) BEFORE MEALS AND HS SUBQ 06/14/18 16:30 07/14/18 06:29 06/20/18 06:34 Insulin Aspart (NovoLOG) 8 units NOVOTIAC SUBQ 06/17/18 11:50 07/15/18 06:59 06/20/18 06:34 Insulin Detemir (Levemir) 30 units DAILY SUBQ 06/15/18 09:00 07/15/18 08:59 06/19/18 08:59 Levetiracetam (Keppra) 750 mg Q12HR ORAL 06/14/18 21:00 07/14/18 08:59 06/19/18 20:41 Lisinopril (Zestril) 10 mg DAILY ORAL 06/20/18 09:00 07/20/18 08:59 Metformin HCl (Glucophage) 500 mg TIAC ORAL 06/14/18 16:30 07/14/18 11:29 06/20/18 06:31 Pantoprazole (Protonix) 40 mg Q12HR ORAL 06/14/18 21:00 07/14/18 20:59 06/19/18 20:41 Tamsulosin HCl (Flomax) 0.4 mg BID ORAL 06/15/18 18:00 07/15/18 17:59 06/19/18 18:19 Thiamine HCl (Vitamin B1) 100 mg DAILY ORAL 06/15/18 09:00 07/14/18 12:44 06/19/18 08:56 Iban Baldwin MD Jun 20, 2018 06:45
--- NOTE | 2018-06-20 07:10 | NUR ---
HAND-OFF: Report given to Rashaad MCCAIN.
--- NOTE | 2018-06-20 07:12 | NUR ---
NURSE NOTES: Received pt from [facility]. Pt is alert and orient x4. No SOB or acute respiratory distress noted. pt is eating breakfast by him self. pt has intact iv access LH 24g SL. All needs attended, bed is locked and is in the lowest position. call light within easy reach. will continue to monitor.
[2018-06-20 08:00] VITALS: BP 120/67
[2018-06-20] MEDS: Thiamine 100mg tab ORAL SCH (09:05)
[2018-06-20] MEDS: Tamsulosin 0.4mg cap ORAL SCH ×2 (09:05→17:01)
[2018-06-20] MEDS: Lisinopril 10mg tab ORAL SCH (09:06)
[2018-06-20] MEDS: Levemir Flexpen SUBQ SCH (09:09)
[2018-06-20 12:00] VITALS: BP 135/72
--- NOTE | 2018-06-20 12:06 | Nephrology Progress Note ---
Assessment/Plan Problem List: (1) Hyperglycemia (2) Alcohol dependence with withdrawal, uncomplicated (3) HTN (hypertension) Assessment DM OOC Sz disorder Alcohol dependencey Prostate cancer obese Plan magso4 supplement adjust bp meds glucophage DC Starlix now on levemir am and HS monitor BS and lytes med surg Subjective ROS Limited/Unobtainable: No Objective Objective Last 24 Hour Vital Signs Date Time Temp Pulse Resp B/P (MAP) Pulse Ox O2 Delivery O2 Flow Rate FiO2 06/20/18 09:06 120/67 06/20/18 09:05 60 120/67 06/20/18 09:00 Room Air 06/20/18 08:00 98.4 60 19 120/67 (84) 96 06/20/18 04:00 98.0 79 22 117/74 (88) 96 06/20/18 00:00 98.1 87 22 148/86 (106) 96 06/19/18 21:00 Room Air 06/19/18 20:00 98.6 94 20 127/72 (90) 96 06/19/18 16:00 97.3 81 20 147/78 (101) 95 06/19/18 13:42 161/92 Intake and Output 06/19/18 06/20/18 19:00 07:00 Intake Total 480 ml 750 ml Output Total 700 ml Balance 480 ml 50 ml Intake Oral 480 ml 750 ml Output Urine Total 700 ml # Voids 3 # Bowel Movements 2 Height (Feet): 5 Height (Inches): 4.00 Weight (Pounds): 195 General Appearance: no apparent distress Objective no change Nicolas Almaguer MD Jun 20, 2018 12:06
--- NOTE | 2018-06-20 13:27 | General Progress Note ---
Assessment/Plan Problem List: (1) Alcohol dependence with withdrawal, uncomplicated ICD Codes: F10.230 - Alcohol dependence with withdrawal, uncomplicated SNOMED: 01171269, 60169679 Assessment/Plan Valium 10mg 1 time folate thiamine Valium prn Subjective Neurologic/Psychiatric: Reports: anxiety, depressed, emotional problems Allergies: Coded Allergies: No Known Allergies (Unverified , 05/21/18) Objective Last 24 Hour Vital Signs Date Time Temp Pulse Resp B/P (MAP) Pulse Ox O2 Delivery O2 Flow Rate FiO2 06/20/18 09:06 120/67 06/20/18 09:05 60 120/67 06/20/18 09:00 Room Air 06/20/18 08:00 98.4 60 19 120/67 (84) 96 06/20/18 04:00 98.0 79 22 117/74 (88) 96 06/20/18 00:00 98.1 87 22 148/86 (106) 96 06/19/18 21:00 Room Air 06/19/18 20:00 98.6 94 20 127/72 (90) 96 06/19/18 16:00 97.3 81 20 147/78 (101) 95 06/19/18 13:42 161/92 Intake and Output 06/19/18 06/20/18 18:59 06:59 Intake Total 480 ml 750 ml Output Total 700 ml Balance 480 ml 50 ml Intake Oral 480 ml 750 ml Output Urine Total 700 ml # Voids 3 # Bowel Movements 2 Height (Feet): 5 Height (Inches): 4.00 Weight (Pounds): 195 General Appearance: alert Neurologic: oriented x 3, responsive, depressed affect Luiz Stuart MD Jun 20, 2018 13:27
[2018-06-20] MEDS: Magnesium Oxide 400mg tab ORAL SCH ×2 (13:28→17:01)
[2018-06-20 16:00] VITALS: BP 130/67
--- NOTE | 2018-06-20 19:19 | General Progress Note ---
Assessment/Plan Assessment/Plan Assessment and Recs: # Prostate cancer - with a elevated psa of 19.7, no known history of malignancy --> trend psa in the future --> recommend obtain repeat biopsy of the prostate with uro --> outpatient bone scan to make sure no mets noted --> needs f/u for this as outpatient with onc or uro # ANemia of chronic disease --> currently stabilized, improved since admission # Alcohol dependence with withdrawal, uncomplicated --> improved through admission # Hyperglycemia --> seen by endo and improved on iss, accuchecks and insulin # Syncopal episode likely hypovolemia related The timing of this note does not necessarily reflect the time of the patient was seen. Greatly appreciate consultation! Subjective Constitutional: Denies: no symptoms, chills, diaphoresis, fever, malaise, weakness, other HEENT: Denies: no symptoms, eye pain, blurred vision, tearing, double vision, ear pain, ear discharge, nose pain, nose congestion, throat pain, throat swelling, mouth pain, mouth swelling, other Cardiovascular: Denies: no symptoms, chest pain, edema, irregular heart rate, lightheadedness, palpitations, syncope, other Respiratory: Denies: no symptoms, cough, orthopnea, shortness of breath, SOB with excertion, SOB at rest, sputum, stridor, wheezing, other Gastrointestinal/Abdominal: Denies: no symptoms, abdomen distended, abdominal pain, black stools, tarry stools, blood in stool, constipated, diarrhea, difficulty swallowing, nausea, poor appetite, poor fluid intake, rectal bleeding , vomiting, other Genitourinary: Denies: no symptoms, burning, discharge, frequency, flank pain, hematuria, incontinence, pain, urgency, other Neurologic/Psychiatric: Denies: no symptoms, anxiety, depressed, emotional problems, headache, numbness, paresthesia, pre-existing deficit, seizure, tingling, tremors, weakness, other Endocrine: Denies: no symptoms, excessive sweating, flushing, intolerance to cold, intolerance to heat, increased hunger, increased thirst, increased urine, unexplained weight gain, unexplained weight loss, other Hematologic/Lymphatic: Denies: no symptoms, anemia, easy bleeding, easy bruising, other Allergies: Coded Allergies: No Known Allergies (Unverified , 05/21/18) Subjective 2/12: seen by bedside, awake, comfortable, denies acute distress. Objective Last 24 Hour Vital Signs Date Time Temp Pulse Resp B/P (MAP) Pulse Ox O2 Delivery O2 Flow Rate FiO2 06/20/18 16:00 98.2 70 19 130/67 (88) 95 06/20/18 12:00 98.4 73 18 135/72 (93) 95 06/20/18 09:06 120/67 06/20/18 09:05 60 120/67 06/20/18 09:00 Room Air 06/20/18 08:00 98.4 60 19 120/67 (84) 96 06/20/18 04:00 98.0 79 22 117/74 (88) 96 06/20/18 00:00 98.1 87 22 148/86 (106) 96 06/19/18 21:00 Room Air 06/19/18 20:00 98.6 94 20 127/72 (90) 96 Intake and Output 06/19/18 06/20/18 19:00 07:00 Intake Total 480 ml 750 ml Output Total 700 ml Balance 480 ml 50 ml Intake Oral 480 ml 750 ml Output Urine Total 700 ml # Voids 3 # Bowel Movements 2 Height (Feet): 5 Height (Inches): 4.00 Weight (Pounds): 195 Objective Sp02: reviewed, normal General Appearance: alert, derate distress - pt. shaky/ nervous Head: normocephalic Eyes: bilateral eye normal inspection, bilateral eye PERR ENT: hearing grossly normal, normal voice Neck: full range of motion, no bony tend Respiratory: lungs clear, normal breath sounds Cardiovascular #1: regular rate, rhythm Gastrointestinal: normal bowel sounds, non tender, soft Musculoskeletal: back normal Neurologic: alert, oriented x3, responsive Psychiatric: judgement/insight normal Skin: normal color, no rash, warm/dry Elmer Woodward MD Jun 20, 2018 19:19
--- NOTE | 2018-06-20 19:25 | NUR ---
HAND-OFF: Report given to [facility].
[2018-06-20 20:00] VITALS: BP 103/61
--- NOTE | 2018-06-20 20:05 | NUR ---
NURSE NOTES: Patient sitting up in chair watching TV. No s/s distress noted. Snacks given per request. Instructed to use call light for assistance. Call light within reach.
--- NOTE | 2018-06-20 20:32 | NUR ---
CASE MANAGEMENT: REVIEW SI: HYPERGLYCEMIA T 98.4 HR 73 RR 18 BP 135/72 SAT 95% ROOM AIR BEDSIDE GLUCOSE 162 IS: MAG OX 400MG PO TID NORVASC PO QD LEVEMIR 30UNITS SQ QD NOVOLOG SQ ACHS METFORMIN PO TID MED/SURG STATUS DCP: [facility] IS [facility]
[2018-06-20] MEDS: Atorvastatin 80mg tab ORAL SCH (20:44)
--- NOTE | 2018-06-20 21:38 | General Progress Note ---
Assessment/Plan Problem List: (1) Alcohol dependence with withdrawal, uncomplicated ICD Codes: F10.230 - Alcohol dependence with withdrawal, uncomplicated SNOMED: 61376551, 49388822 (2) Hyperglycemia ICD Codes: R73.9 - Hyperglycemia, unspecified SNOMED: 86357585, 87492178 Status: progressing Assessment/Plan hyperglycemia is better gave order to dc today has placement issues Subjective ROS Limited/Unobtainable: Yes Allergies: Coded Allergies: No Known Allergies (Unverified , 05/21/18) Objective Last 24 Hour Vital Signs Date Time Temp Pulse Resp B/P (MAP) Pulse Ox O2 Delivery O2 Flow Rate FiO2 06/20/18 21:00 Room Air 06/20/18 20:00 98.3 72 18 103/61 (75) 95 06/20/18 16:00 98.2 70 19 130/67 (88) 95 06/20/18 12:00 98.4 73 18 135/72 (93) 95 06/20/18 09:06 120/67 06/20/18 09:05 60 120/67 06/20/18 09:00 Room Air 06/20/18 08:00 98.4 60 19 120/67 (84) 96 06/20/18 04:00 98.0 79 22 117/74 (88) 96 06/20/18 00:00 98.1 87 22 148/86 (106) 96 Intake and Output 06/19/18 06/20/18 19:00 07:00 Intake Total 480 ml 750 ml Output Total 700 ml Balance 480 ml 50 ml Intake Oral 480 ml 750 ml Output Urine Total 700 ml # Voids 3 # Bowel Movements 2 Height (Feet): 5 Height (Inches): 4.00 Weight (Pounds): 195 Neck: supple Cardiovascular: normal rate Respiratory/Chest: lungs clear Abdomen: soft Micha Swenson MD Jun 20, 2018 21:38
[2018-06-21] VITALS: BP 121/50
[2018-06-21 04:00] VITALS: BP 121/85
[2018-06-21] MEDS: metFORMIN 500mg tab ORAL SCH ×3 (06:07→17:17)
[2018-06-21] MEDS: NovoLOG Insulin Flexpen SUBQ SCH ×7 (06:09→20:57)
--- NOTE | 2018-06-21 06:25 | General Progress Note ---
Assessment/Plan Problem List: (1) Hyperglycemia ICD Codes: R73.9 - Hyperglycemia, unspecified SNOMED: 06359382, 56850408 (2) Alcohol dependence with withdrawal, uncomplicated ICD Codes: F10.230 - Alcohol dependence with withdrawal, uncomplicated SNOMED: 31333963, 04639572 Assessment/Plan continue Levemir 30 units qam continue Novolog to 8 units ac tid continue Metformin 500 mg tid continue NISS ac / hs Subjective Allergies: Coded Allergies: No Known Allergies (Unverified , 05/21/18) All Systems: reviewed and negative except above Subjective events noted Item Value Date Time Bedside Blood Glucose 171 mg/dl H 06/21/18 0610 Bedside Blood Glucose 99 mg/dl 06/20/18 2100 Bedside Blood Glucose 162 mg/dl H 06/20/18 1706 Bedside Blood Glucose 89 mg/dl 06/20/18 1150 Bedside Blood Glucose 116 mg/dl 06/20/18 0909 Bedside Blood Glucose 136 mg/dl H 06/20/18 0634 Objective Last 24 Hour Vital Signs Date Time Temp Pulse Resp B/P (MAP) Pulse Ox O2 Delivery O2 Flow Rate FiO2 06/21/18 04:00 98.3 69 19 121/85 (97) 96 06/21/18 00:00 97.7 59 18 121/50 (73) 98 06/20/18 21:00 Room Air 06/20/18 20:00 98.3 72 18 103/61 (75) 95 06/20/18 16:00 98.2 70 19 130/67 (88) 95 06/20/18 12:00 98.4 73 18 135/72 (93) 95 06/20/18 09:06 120/67 06/20/18 09:05 60 120/67 06/20/18 09:00 Room Air 06/20/18 08:00 98.4 60 19 120/67 (84) 96 Intake and Output 06/20/18 06/21/18 19:00 07:00 Intake Total 500 ml 600 ml Balance 500 ml 600 ml Intake Oral 500 ml 600 ml # Voids 4 3 # Bowel Movements 1 Height (Feet): 5 Height (Inches): 4.00 Weight (Pounds): 208 General Appearance: no apparent distress Neck: normal alignment Cardiovascular: normal rate Respiratory/Chest: normal breath sounds Abdomen: normal bowel sounds Objective Current Medications Medications (Trade) Dose Ordered Sig/Michelle Route PRN Reason Start Time Stop Time Status Last Admin Dose Admin Acetaminophen (Tylenol) 500 mg Q4H PRN ORAL Mild Pain/Temp > 100.5 06/14/18 15:00 07/13/18 14:59 06/18/18 23:56 Amlodipine Besylate (Norvasc) 10 mg DAILY ORAL 06/20/18 09:00 07/14/18 08:59 06/20/18 09:05 Atorvastatin Calcium (Lipitor) 40 mg BEDTIME ORAL 06/14/18 21:00 07/14/18 20:59 06/20/18 20:44 Dextrose (Dextrose 50%) 25 ml Q30M PRN IV Hypoglycemia 06/15/18 07:00 07/15/18 06:59 Dextrose (Dextrose 50%) 50 ml Q30M PRN IV Hypoglycemia 06/15/18 07:00 07/15/18 06:59 Diazepam (Valium) 10 mg Q6H PRN ORAL For Anxiety 06/14/18 15:00 06/21/18 14:59 Escitalopram Oxalate (Lexapro) 10 mg DAILY ORAL 06/15/18 09:00 07/14/18 08:59 06/20/18 09:05 Insulin Aspart (NovoLOG) BEFORE MEALS AND HS SUBQ 06/14/18 16:30 07/14/18 06:29 06/21/18 06:09 Insulin Aspart (NovoLOG) 8 units NOVOTIAC SUBQ 06/17/18 11:50 07/15/18 06:59 06/21/18 06:10 Insulin Detemir (Levemir) 30 units DAILY SUBQ 06/15/18 09:00 07/15/18 08:59 06/20/18 09:09 Levetiracetam (Keppra) 750 mg Q12HR ORAL 06/14/18 21:00 07/14/18 08:59 06/20/18 20:44 Lisinopril (Zestril) 10 mg DAILY ORAL 06/20/18 09:00 07/20/18 08:59 06/20/18 09:06 Magnesium Oxide (Mag-Ox 400mg) 400 mg THREE TIMES A DAY ORAL 06/20/18 13:00 07/20/18 12:59 06/20/18 17:01 Metformin HCl (Glucophage) 500 mg TIAC ORAL 06/14/18 16:30 07/14/18 11:29 06/21/18 06:07 Pantoprazole (Protonix) 40 mg Q12HR ORAL 06/14/18 21:00 07/14/18 20:59 06/20/18 20:44 Tamsulosin HCl (Flomax) 0.4 mg BID ORAL 06/15/18 18:00 07/15/18 17:59 06/20/18 17:01 Thiamine HCl (Vitamin B1) 100 mg DAILY ORAL 06/15/18 09:00 07/14/18 12:44 06/20/18 09:05 Iban Baldwin MD Jun 21, 2018 06:25
--- NOTE | 2018-06-21 07:04 | NUR ---
HAND-OFF: Report given to Rachael PERDOMO.
--- NOTE | 2018-06-21 07:55 | NUR ---
NURSE NOTES: Received patient from Rachael. Patient is alert and oriented x4. Not in respiratory/cardiac distress. Denies any pain or discomfort @ this time. IV intact, bed is in lowest position and locked. Will continue plan of care.
[2018-06-21 08:00] VITALS: BP 123/82
[2018-06-21] MEDS: Thiamine 100mg tab ORAL SCH (09:17)
[2018-06-21] MEDS: Lisinopril 10mg tab ORAL SCH (09:17)
[2018-06-21] MEDS: Tamsulosin 0.4mg cap ORAL SCH ×2 (09:18→17:17)
[2018-06-21] MEDS: Magnesium Oxide 400mg tab ORAL SCH ×3 (09:18→17:17)
[2018-06-21] MEDS: Levemir Flexpen SUBQ SCH (09:29)
[2018-06-21 12:00] VITALS: BP 141/77
--- NOTE | 2018-06-21 12:07 | General Progress Note ---
Assessment/Plan Problem List: (1) Alcohol dependence with withdrawal, uncomplicated ICD Codes: F10.230 - Alcohol dependence with withdrawal, uncomplicated SNOMED: 29753616, 57396310 Assessment/Plan Valium 10mg 1 time folate thiamine Valium prn Subjective Neurologic/Psychiatric: Reports: anxiety, depressed Allergies: Coded Allergies: No Known Allergies (Unverified , 05/21/18) Objective Last 24 Hour Vital Signs Date Time Temp Pulse Resp B/P (MAP) Pulse Ox O2 Delivery O2 Flow Rate FiO2 06/21/18 09:18 73 123/82 06/21/18 09:17 123/82 06/21/18 09:00 Room Air 06/21/18 08:00 98.6 73 18 123/82 (96) 96 06/21/18 04:00 98.3 69 19 121/85 (97) 96 06/21/18 00:00 97.7 59 18 121/50 (73) 98 06/20/18 21:00 Room Air 06/20/18 20:00 98.3 72 18 103/61 (75) 95 06/20/18 16:00 98.2 70 19 130/67 (88) 95 Intake and Output 06/20/18 06/21/18 19:00 07:00 Intake Total 500 ml 850 ml Balance 500 ml 850 ml Intake Oral 500 ml 850 ml # Voids 4 7 # Bowel Movements 1 Height (Feet): 5 Height (Inches): 4.00 Weight (Pounds): 208 General Appearance: no apparent distress, alert Neurologic: oriented x 3, responsive, depressed affect Luiz Sutart MD Jun 21, 2018 12:07
--- NOTE | 2018-06-21 12:39 | Nephrology Progress Note ---
Assessment/Plan Problem List: (1) Hyperglycemia (2) Alcohol dependence with withdrawal, uncomplicated (3) HTN (hypertension) Assessment DM OOC Sz disorder Alcohol dependencey Prostate cancer obese Plan magso4 supplement adjust bp meds glucophage DC Starlix now on levemir am and HS monitor BS and lytes med surg Subjective ROS Limited/Unobtainable: No Objective Objective Last 24 Hour Vital Signs Date Time Temp Pulse Resp B/P (MAP) Pulse Ox O2 Delivery O2 Flow Rate FiO2 06/21/18 09:18 73 123/82 06/21/18 09:17 123/82 06/21/18 09:00 Room Air 06/21/18 08:00 98.6 73 18 123/82 (96) 96 06/21/18 04:00 98.3 69 19 121/85 (97) 96 06/21/18 00:00 97.7 59 18 121/50 (73) 98 06/20/18 21:00 Room Air 06/20/18 20:00 98.3 72 18 103/61 (75) 95 06/20/18 16:00 98.2 70 19 130/67 (88) 95 Intake and Output 06/20/18 06/21/18 19:00 07:00 Intake Total 500 ml 850 ml Balance 500 ml 850 ml Intake Oral 500 ml 850 ml # Voids 4 7 # Bowel Movements 1 Height (Feet): 5 Height (Inches): 4.00 Weight (Pounds): 208 General Appearance: no apparent distress Objective no change Nicolas Almaguer MD Jun 21, 2018 12:39
--- NOTE | 2018-06-21 13:40 | NUR ---
RD ASSESSMENT & RECOMMENDATIONS SEE CARE ACTIVITY FOR COMPLETE ASSESSMENT DAILY ESTIMATED NEEDS: Needs based on DM, 68kg adj 25-30 kcals/kg 7995-0977 total kcals 1-1.5 g protein/kg 68-102 g total protein 25-30 mL/kg 7291-5623 total fluid mLs NUTRITION DIAGNOSIS: Altered nutrition related lab values r/t Diabetes and hyperglycemia as evidenced by pt adm w/ BG 638, now improved, A1C 9.7. CURRENT DIET:[facility] MED chopped PO DIET RECOMMENDATIONS: CCHO LOW + 1-CARB/ HIGH PROTEIN SNACK TID (texture as tolerated) ADDITIONAL RECOMMENDATIONS: 1) Obtain a standing weight as able 2) Monitor lytes, replete as needed- check follow up mag (low mag) 3) Diet edu provided on 06/16/18 .
--- NOTE | 2018-06-21 13:40 | NUR ---
*-* INSURANCE *-* ALL CLINICALS, REVIEWS AND INTERQUAL HAVE BEEN FAXED TO: [employer] NO CM YET FAX FS AND ALL CLINICALS TO FAX [phone]
[2018-06-21 16:00] VITALS: BP 146/59
--- NOTE | 2018-06-21 16:30 | NUR ---
Social Service Note TOMMY spoke with [facility] nurse coordinator for [facility] locating placement for patient [phone]. [facility] has been unable to locate a bed for placement at this time. TOMMY discussed referral to [facility]. TOMMY contacted patient's [facility] [phone] and was provided the number [phone] for Charlotte the possible CM assigned to this case. Message left. TOMMY attempted to discuss SNF placement with insurance however no CM assigned at this time. Will continue to follow up.
--- NOTE | 2018-06-21 17:36 | General Progress Note ---
Assessment/Plan Assessment/Plan Assessment and Recs: # Prostate cancer - with a elevated psa of 19.7, no known history of malignancy --> trend psa in the future --> recommend obtain repeat biopsy of the prostate with uro --> outpatient bone scan to make sure no mets noted --> needs f/u for this as outpatient with onc or uro # ANemia of chronic disease --> currently stabilized, improved since admission # Alcohol dependence with withdrawal, uncomplicated --> improved through admission # Hyperglycemia --> seen by endo and improved on iss, accuchecks and insulin # Syncopal episode likely hypovolemia related The timing of this note does not necessarily reflect the time of the patient was seen. Greatly appreciate consultation! Subjective Constitutional: Denies: no symptoms, chills, diaphoresis, fever, malaise, weakness, other HEENT: Denies: no symptoms, eye pain, blurred vision, tearing, double vision, ear pain, ear discharge, nose pain, nose congestion, throat pain, throat swelling, mouth pain, mouth swelling, other Cardiovascular: Denies: no symptoms, chest pain, edema, irregular heart rate, lightheadedness, palpitations, syncope, other Respiratory: Denies: no symptoms, cough, orthopnea, shortness of breath, SOB with excertion, SOB at rest, sputum, stridor, wheezing, other Gastrointestinal/Abdominal: Denies: no symptoms, abdomen distended, abdominal pain, black stools, tarry stools, blood in stool, constipated, diarrhea, difficulty swallowing, nausea, poor appetite, poor fluid intake, rectal bleeding , vomiting, other Genitourinary: Denies: no symptoms, burning, discharge, frequency, flank pain, hematuria, incontinence, pain, urgency, other Allergies: Coded Allergies: No Known Allergies (Unverified , 05/21/18) Subjective 06/20: seen by bedside, awake, comfortable, denies acute distress. 06/21: Pt is resting in bed, no overnight events reported, no fevers or chills. Objective Last 24 Hour Vital Signs Date Time Temp Pulse Resp B/P (MAP) Pulse Ox O2 Delivery O2 Flow Rate FiO2 06/21/18 16:00 98.0 60 18 146/59 (88) 96 06/21/18 12:00 98.1 60 19 141/77 (98) 96 06/21/18 09:18 73 123/82 06/21/18 09:17 123/82 06/21/18 09:00 Room Air 06/21/18 08:00 98.6 73 18 123/82 (96) 96 06/21/18 04:00 98.3 69 19 121/85 (97) 96 06/21/18 00:00 97.7 59 18 121/50 (73) 98 06/20/18 21:00 Room Air 06/20/18 20:00 98.3 72 18 103/61 (75) 95 Intake and Output 06/20/18 06/21/18 18:59 06:59 Intake Total 500 ml 850 ml Balance 500 ml 850 ml Intake Oral 500 ml 850 ml # Voids 4 7 # Bowel Movements 1 Height (Feet): 5 Height (Inches): 4.00 Weight (Pounds): 208 Objective Sp02: reviewed, normal General Appearance: alert, derate distress - pt. shaky/ nervous Head: normocephalic Eyes: bilateral eye normal inspection, bilateral eye PERR ENT: hearing grossly normal, normal voice Neck: full range of motion, no bony tend Respiratory: lungs clear, normal breath sounds Cardiovascular #1: regular rate, rhythm Gastrointestinal: normal bowel sounds, non tender, soft Musculoskeletal: back normal Neurologic: alert, oriented x3, responsive Psychiatric: judgement/insight normal Skin: normal color, no rash, warm/dry Elmer Woodward MD Jun 21, 2018 17:36
--- NOTE | 2018-06-21 19:23 | NUR ---
HAND-OFF: Report given to Ayla MCCANI.
--- NOTE | 2018-06-21 19:49 | NUR ---
NURSE NOTES: Patient up in bed watching TV, no distress noted. All needs attended to. Call light within reach.
[2018-06-21 20:00] VITALS: BP 114/60
[2018-06-21] MEDS: Atorvastatin 80mg tab ORAL SCH (20:23)
--- NOTE | 2018-06-21 21:29 | General Progress Note ---
Assessment/Plan Problem List: (1) Alcohol dependence with withdrawal, uncomplicated ICD Codes: F10.230 - Alcohol dependence with withdrawal, uncomplicated SNOMED: 73286881, 85500259 (2) Hyperglycemia ICD Codes: R73.9 - Hyperglycemia, unspecified SNOMED: 04696237, 98215167 Status: progressing Assessment/Plan hyperglycemia is better h/h etoh abuse no Dt reviewed chart and labs has placement issues Subjective ROS Limited/Unobtainable: Yes Allergies: Coded Allergies: No Known Allergies (Unverified , 05/21/18) Objective Last 24 Hour Vital Signs Date Time Temp Pulse Resp B/P (MAP) Pulse Ox O2 Delivery O2 Flow Rate FiO2 06/21/18 21:00 Room Air 06/21/18 20:00 98.3 65 20 114/60 (78) 98 06/21/18 16:00 98.0 60 18 146/59 (88) 96 06/21/18 12:00 98.1 60 19 141/77 (98) 96 06/21/18 09:18 73 123/82 06/21/18 09:17 123/82 06/21/18 09:00 Room Air 06/21/18 08:00 98.6 73 18 123/82 (96) 96 06/21/18 04:00 98.3 69 19 121/85 (97) 96 06/21/18 00:00 97.7 59 18 121/50 (73) 98 Intake and Output 06/20/18 06/21/18 19:00 07:00 Intake Total 500 ml 850 ml Balance 500 ml 850 ml Intake Oral 500 ml 850 ml # Voids 4 7 # Bowel Movements 1 Height (Feet): 5 Height (Inches): 4.00 Weight (Pounds): 208 Neck: supple Cardiovascular: normal rate Respiratory/Chest: lungs clear Micha Swenson MD Jun 21, 2018 21:29
[2018-06-22] VITALS: BP 127/68
[2018-06-22 04:00] VITALS: BP 119/85
--- NOTE | 2018-06-22 06:10 | General Progress Note ---
Assessment/Plan Problem List: (1) Hyperglycemia ICD Codes: R73.9 - Hyperglycemia, unspecified SNOMED: 10337084, 11709610 (2) Alcohol dependence with withdrawal, uncomplicated ICD Codes: F10.230 - Alcohol dependence with withdrawal, uncomplicated SNOMED: 78561751, 03419809 Assessment/Plan continue Levemir 30 units qam continue Novolog to 8 units ac tid continue Metformin 500 mg tid continue NISS ac / hs Subjective Allergies: Coded Allergies: No Known Allergies (Unverified , 05/21/18) All Systems: reviewed and negative except above Subjective events noted Item Value Date Time Bedside Blood Glucose 171 mg/dl H 06/21/18 0610 Bedside Blood Glucose 99 mg/dl 06/20/18 2100 Bedside Blood Glucose 162 mg/dl H 06/20/18 1706 Bedside Blood Glucose 89 mg/dl 06/20/18 1150 Bedside Blood Glucose 94 mg/dl 06/21/18 2100 Bedside Blood Glucose 185 mg/dl H 06/21/18 1717 Bedside Blood Glucose 95 mg/dl 06/21/18 1206 Bedside Blood Glucose 110 mg/dl 06/21/18 0929 Bedside Blood Glucose 171 mg/dl H 06/21/18 0630 Objective Last 24 Hour Vital Signs Date Time Temp Pulse Resp B/P (MAP) Pulse Ox O2 Delivery O2 Flow Rate FiO2 06/22/18 04:00 98.5 70 18 119/85 (96) 98 06/22/18 00:00 98.5 70 18 127/68 (87) 97 06/21/18 21:00 Room Air 06/21/18 20:00 98.3 65 20 114/60 (78) 98 06/21/18 16:00 98.0 60 18 146/59 (88) 96 06/21/18 12:00 98.1 60 19 141/77 (98) 96 06/21/18 09:18 73 123/82 06/21/18 09:17 123/82 06/21/18 09:00 Room Air 06/21/18 08:00 98.6 73 18 123/82 (96) 96 Intake and Output 06/21/18 06/22/18 19:00 07:00 Intake Total 1240 ml 800 ml Balance 1240 ml 800 ml Intake Oral 1240 ml 800 ml # Voids 6 5 # Bowel Movements 1 Height (Feet): 5 Height (Inches): 4.00 Weight (Pounds): 208 General Appearance: no apparent distress Neck: normal alignment Cardiovascular: normal rate Respiratory/Chest: lungs clear Abdomen: normal bowel sounds Objective Current Medications Medications (Trade) Dose Ordered Sig/Michelle Route PRN Reason Start Time Stop Time Status Last Admin Dose Admin Acetaminophen (Tylenol) 500 mg Q4H PRN ORAL Mild Pain/Temp > 100.5 06/14/18 15:00 07/13/18 14:59 06/18/18 23:56 Amlodipine Besylate (Norvasc) 10 mg DAILY ORAL 06/20/18 09:00 07/14/18 08:59 06/21/18 09:18 Atorvastatin Calcium (Lipitor) 40 mg BEDTIME ORAL 06/14/18 21:00 07/14/18 20:59 06/21/18 20:23 Dextrose (Dextrose 50%) 25 ml Q30M PRN IV Hypoglycemia 06/15/18 07:00 07/15/18 06:59 Dextrose (Dextrose 50%) 50 ml Q30M PRN IV Hypoglycemia 06/15/18 07:00 07/15/18 06:59 Escitalopram Oxalate (Lexapro) 10 mg DAILY ORAL 06/15/18 09:00 07/14/18 08:59 06/21/18 09:18 Insulin Aspart (NovoLOG) BEFORE MEALS AND HS SUBQ 06/14/18 16:30 07/14/18 06:29 06/21/18 17:17 Insulin Aspart (NovoLOG) 8 units NOVOTIAC SUBQ 06/17/18 11:50 07/15/18 06:59 06/21/18 17:16 Insulin Detemir (Levemir) 30 units DAILY SUBQ 06/15/18 09:00 07/15/18 08:59 06/21/18 09:29 Levetiracetam (Keppra) 750 mg Q12HR ORAL 06/14/18 21:00 07/14/18 08:59 06/21/18 20:23 Lisinopril (Zestril) 10 mg DAILY ORAL 06/20/18 09:00 07/20/18 08:59 06/21/18 09:17 Magnesium Oxide (Mag-Ox 400mg) 400 mg THREE TIMES A DAY ORAL 06/20/18 13:00 07/20/18 12:59 06/21/18 17:17 Metformin HCl (Glucophage) 500 mg TIAC ORAL 06/14/18 16:30 07/14/18 11:29 06/21/18 17:17 Pantoprazole (Protonix) 40 mg Q12HR ORAL 06/14/18 21:00 07/14/18 20:59 06/21/18 20:23 Tamsulosin HCl (Flomax) 0.4 mg BID ORAL 06/15/18 18:00 07/15/18 17:59 06/21/18 17:17 Thiamine HCl (Vitamin B1) 100 mg DAILY ORAL 06/15/18 09:00 07/14/18 12:44 06/21/18 09:17 Iban Baldwin MD Jun 22, 2018 06:10
[2018-06-22] MEDS: metFORMIN 500mg tab ORAL SCH ×3 (06:29→16:53)
[2018-06-22] MEDS: NovoLOG Insulin Flexpen SUBQ SCH ×7 (06:34→20:30)
--- NOTE | 2018-06-22 07:07 | NUR ---
HAND-OFF: Report given to Jinny Jaffe RN.
--- NOTE | 2018-06-22 07:45 | NUR ---
NURSE NOTES: received report from ADÁN Aguila. patient sleeping in bed. no respiratory distress noted. bed in the lowest position. call light within reach, alarm on. will continue to monitor.
[2018-06-22 08:00] VITALS: BP 123/73
[2018-06-22] MEDS: Magnesium Oxide 400mg tab ORAL SCH ×3 (09:25→17:30)
[2018-06-22] MEDS: Lisinopril 10mg tab ORAL SCH (09:25)
[2018-06-22] MEDS: Tamsulosin 0.4mg cap ORAL SCH ×2 (09:25→17:30)
[2018-06-22] MEDS: Thiamine 100mg tab ORAL SCH (09:25)
[2018-06-22] MEDS: Levemir Flexpen SUBQ SCH (09:37)
--- NOTE | 2018-06-22 11:06 | General Progress Note ---
Assessment/Plan Problem List: (1) Alcohol dependence with withdrawal, uncomplicated ICD Codes: F10.230 - Alcohol dependence with withdrawal, uncomplicated SNOMED: 30560143, 92375776 (2) Hyperglycemia ICD Codes: R73.9 - Hyperglycemia, unspecified SNOMED: 90702203, 07002158 Status: progressing Assessment/Plan hyperglycemia is better h/h etoh abuse diabetic med prescription per dr sanchez Subjective ROS Limited/Unobtainable: Yes Constitutional: Reports: no symptoms Allergies: Coded Allergies: No Known Allergies (Unverified , 05/21/18) Objective Last 24 Hour Vital Signs Date Time Temp Pulse Resp B/P (MAP) Pulse Ox O2 Delivery O2 Flow Rate FiO2 06/22/18 09:26 65 123/73 06/22/18 09:25 123/73 06/22/18 08:00 98.1 65 19 123/73 (90) 98 06/22/18 04:00 98.5 70 18 119/85 (96) 98 06/22/18 00:00 98.5 70 18 127/68 (87) 97 06/21/18 21:00 Room Air 06/21/18 20:00 98.3 65 20 114/60 (78) 98 06/21/18 16:00 98.0 60 18 146/59 (88) 96 06/21/18 12:00 98.1 60 19 141/77 (98) 96 Intake and Output 06/21/18 06/22/18 19:00 07:00 Intake Total 1240 ml 800 ml Balance 1240 ml 800 ml Intake Oral 1240 ml 800 ml # Voids 6 5 # Bowel Movements 1 Height (Feet): 5 Height (Inches): 4.00 Weight (Pounds): 208 Neck: supple Cardiovascular: normal rate Respiratory/Chest: lungs clear Micha Swenson MD Jun 22, 2018 11:06
--- NOTE | 2018-06-22 11:39 | Nephrology Progress Note ---
Assessment/Plan Problem List: (1) Hyperglycemia (2) Alcohol dependence with withdrawal, uncomplicated (3) HTN (hypertension) Assessment DM OOC Sz disorder Alcohol dependencey Prostate cancer obese Plan magso4 supplement adjust bp meds glucophage DC Starlix now on levemir am and HS monitor BS and lytes med surg Subjective ROS Limited/Unobtainable: No Constitutional: Reports: malaise Objective Objective Last 24 Hour Vital Signs Date Time Temp Pulse Resp B/P (MAP) Pulse Ox O2 Delivery O2 Flow Rate FiO2 06/22/18 09:26 65 123/73 06/22/18 09:25 123/73 06/22/18 09:00 Room Air 06/22/18 08:00 98.1 65 19 123/73 (90) 98 06/22/18 04:00 98.5 70 18 119/85 (96) 98 06/22/18 00:00 98.5 70 18 127/68 (87) 97 06/21/18 21:00 Room Air 06/21/18 20:00 98.3 65 20 114/60 (78) 98 06/21/18 16:00 98.0 60 18 146/59 (88) 96 06/21/18 12:00 98.1 60 19 141/77 (98) 96 Intake and Output 06/21/18 06/22/18 19:00 07:00 Intake Total 1240 ml 800 ml Balance 1240 ml 800 ml Intake Oral 1240 ml 800 ml # Voids 6 5 # Bowel Movements 1 Height (Feet): 5 Height (Inches): 4.00 Weight (Pounds): 208 General Appearance: no apparent distress Objective no change Nicolas Almaguer MD Jun 22, 2018 11:39
[2018-06-22 12:00] VITALS: BP 123/73
--- NOTE | 2018-06-22 13:36 | General Progress Note ---
Assessment/Plan Problem List: (1) Alcohol dependence with withdrawal, uncomplicated ICD Codes: F10.230 - Alcohol dependence with withdrawal, uncomplicated SNOMED: 32604516, 61594818 Assessment/Plan Valium 10mg 1 time folate thiamine Valium prn Subjective Neurologic/Psychiatric: Reports: anxiety, depressed, emotional problems Allergies: Coded Allergies: No Known Allergies (Unverified , 05/21/18) Objective Last 24 Hour Vital Signs Date Time Temp Pulse Resp B/P (MAP) Pulse Ox O2 Delivery O2 Flow Rate FiO2 06/22/18 12:00 98.1 64 18 123/73 (90) 98 06/22/18 09:26 65 123/73 06/22/18 09:25 123/73 06/22/18 09:00 Room Air 06/22/18 08:00 98.1 65 19 123/73 (90) 98 06/22/18 04:00 98.5 70 18 119/85 (96) 98 06/22/18 00:00 98.5 70 18 127/68 (87) 97 06/21/18 21:00 Room Air 06/21/18 20:00 98.3 65 20 114/60 (78) 98 06/21/18 16:00 98.0 60 18 146/59 (88) 96 Intake and Output 06/21/18 06/22/18 19:00 07:00 Intake Total 1240 ml 800 ml Balance 1240 ml 800 ml Intake Oral 1240 ml 800 ml # Voids 6 5 # Bowel Movements 1 Height (Feet): 5 Height (Inches): 4.00 Weight (Pounds): 208 Luiz Stuart MD Jun 22, 2018 13:36
[2018-06-22 16:00] VITALS: BP 121/62
--- NOTE | 2018-06-22 16:23 | General Progress Note ---
Assessment/Plan Assessment/Plan Assessment and Recs: # Prostate cancer - with a elevated psa of 19.7, no known history of malignancy --> trend psa in the future --> recommend obtain repeat biopsy of the prostate with uro --> outpatient bone scan to make sure no mets noted --> needs f/u for this as outpatient with onc or uro # ANemia of chronic disease --> currently stabilized, improved since admission # Alcohol dependence with withdrawal, uncomplicated --> improved through admission # Hyperglycemia --> seen by endo and improved on iss, accuchecks and insulin # Syncopal episode likely hypovolemia related The timing of this note does not necessarily reflect the time of the patient was seen. Greatly appreciate consultation! Subjective Constitutional: Denies: no symptoms, chills, diaphoresis, fever, malaise, weakness, other HEENT: Denies: no symptoms, eye pain, blurred vision, tearing, double vision, ear pain, ear discharge, nose pain, nose congestion, throat pain, throat swelling, mouth pain, mouth swelling, other Cardiovascular: Denies: no symptoms, chest pain, edema, irregular heart rate, lightheadedness, palpitations, syncope, other Respiratory: Denies: no symptoms, cough, orthopnea, shortness of breath, SOB with excertion, SOB at rest, sputum, stridor, wheezing, other Gastrointestinal/Abdominal: Denies: no symptoms, abdomen distended, abdominal pain, black stools, tarry stools, blood in stool, constipated, diarrhea, difficulty swallowing, nausea, poor appetite, poor fluid intake, rectal bleeding , vomiting, other Genitourinary: Denies: no symptoms, burning, discharge, frequency, flank pain, hematuria, incontinence, pain, urgency, other Neurologic/Psychiatric: Denies: no symptoms, anxiety, depressed, emotional problems, headache, numbness, paresthesia, pre-existing deficit, seizure, tingling, tremors, weakness, other Endocrine: Denies: no symptoms, excessive sweating, flushing, intolerance to cold, intolerance to heat, increased hunger, increased thirst, increased urine, unexplained weight gain, unexplained weight loss, other Hematologic/Lymphatic: Denies: no symptoms, anemia, easy bleeding, easy bruising, other Allergies: Coded Allergies: No Known Allergies (Unverified , 05/21/18) Subjective 2/12: seen by bedside, awake, comfortable, denies acute distress. 06/21: Pt is resting in bed, no overnight events reported, no fevers or chills. 06/22: Pt is awake, comfortable, no acute distress. Objective Last 24 Hour Vital Signs Date Time Temp Pulse Resp B/P (MAP) Pulse Ox O2 Delivery O2 Flow Rate FiO2 06/22/18 12:00 98.1 64 18 123/73 (90) 98 06/22/18 09:26 65 123/73 06/22/18 09:25 123/73 06/22/18 09:00 Room Air 06/22/18 08:00 98.1 65 19 123/73 (90) 98 06/22/18 04:00 98.5 70 18 119/85 (96) 98 06/22/18 00:00 98.5 70 18 127/68 (87) 97 06/21/18 21:00 Room Air 06/21/18 20:00 98.3 65 20 114/60 (78) 98 Intake and Output 06/21/18 06/22/18 19:00 07:00 Intake Total 1240 ml 800 ml Balance 1240 ml 800 ml Intake Oral 1240 ml 800 ml # Voids 6 5 # Bowel Movements 1 Height (Feet): 5 Height (Inches): 4.00 Weight (Pounds): 208 Objective Sp02: reviewed, normal General Appearance: alert, derate distress - pt. shaky/ nervous Head: normocephalic Eyes: bilateral eye normal inspection, bilateral eye PERR ENT: hearing grossly normal, normal voice Neck: full range of motion, no bony tend Respiratory: lungs clear, normal breath sounds Cardiovascular #1: regular rate, rhythm Gastrointestinal: normal bowel sounds, non tender, soft Musculoskeletal: back normal Neurologic: alert, oriented x3, responsive Psychiatric: judgement/insight normal Skin: normal color, no rash, warm/dry Elmer Woodward MD Jun 22, 2018 16:23
--- NOTE | 2018-06-22 19:16 | NUR ---
HAND-OFF: Report given to ADÁN Neely.
--- NOTE | 2018-06-22 19:30 | NUR ---
NURSE NOTES: Patient received sitting on the chair, no acute distress, IV is intact. Call light in reach, will continue to monitor.
[2018-06-22 20:00] VITALS: BP 121/67
[2018-06-22] MEDS: Atorvastatin 80mg tab ORAL SCH (20:51)
[2018-06-23] VITALS: BP 135/63
[2018-06-23 04:00] VITALS: BP 111/64
[2018-06-23] MEDS: metFORMIN 500mg tab ORAL SCH ×3 (06:42→16:38)
[2018-06-23] MEDS: NovoLOG Insulin Flexpen SUBQ SCH ×6 (06:45→16:40)
--- NOTE | 2018-06-23 06:51 | General Progress Note ---
Assessment/Plan Problem List: (1) Hyperglycemia ICD Codes: R73.9 - Hyperglycemia, unspecified SNOMED: 93184187, 21396346 (2) Alcohol dependence with withdrawal, uncomplicated ICD Codes: F10.230 - Alcohol dependence with withdrawal, uncomplicated SNOMED: 48119657, 83700506 Assessment/Plan continue Levemir 30 units qam continue Novolog to 8 units ac tid continue Metformin 500 mg tid continue NISS ac / hs Subjective Allergies: Coded Allergies: No Known Allergies (Unverified , 05/21/18) All Systems: reviewed and negative except above Subjective events noted glucose values are stable Item Value Date Time Bedside Blood Glucose 139 mg/dl H 06/23/18 0649 Bedside Blood Glucose 92 mg/dl 06/22/18 2100 Bedside Blood Glucose 191 mg/dl H 06/22/18 1655 Bedside Blood Glucose 172 mg/dl H 06/22/18 1156 Bedside Blood Glucose 123 mg/dl H 06/22/18 0937 Bedside Blood Glucose 128 mg/dl H 06/22/18 0636 Objective Last 24 Hour Vital Signs Date Time Temp Pulse Resp B/P (MAP) Pulse Ox O2 Delivery O2 Flow Rate FiO2 06/23/18 04:00 98.2 73 18 111/64 (80) 96 06/23/18 00:00 98.1 54 18 135/63 (87) 96 06/22/18 21:00 Room Air 06/22/18 20:00 98.3 63 18 121/67 (85) 99 06/22/18 16:00 98.0 69 17 121/62 (81) 98 06/22/18 12:00 98.1 64 18 123/73 (90) 98 06/22/18 09:26 65 123/73 06/22/18 09:25 123/73 06/22/18 09:00 Room Air 06/22/18 08:00 98.1 65 19 123/73 (90) 98 Intake and Output 06/22/18 06/23/18 19:00 07:00 Intake Total 1220 ml 400 ml Balance 1220 ml 400 ml Intake Oral 1220 ml 400 ml # Voids 7 2 Height (Feet): 5 Height (Inches): 4.00 Weight (Pounds): 208 General Appearance: no apparent distress Neck: normal alignment Cardiovascular: normal rate Respiratory/Chest: normal breath sounds Abdomen: normal bowel sounds Pelvis: normal external exam Objective Current Medications Medications (Trade) Dose Ordered Sig/Michelle Route PRN Reason Start Time Stop Time Status Last Admin Dose Admin Acetaminophen (Tylenol) 500 mg Q4H PRN ORAL Mild Pain/Temp > 100.5 06/14/18 15:00 07/13/18 14:59 06/18/18 23:56 Amlodipine Besylate (Norvasc) 10 mg DAILY ORAL 06/20/18 09:00 07/14/18 08:59 06/22/18 09:26 Atorvastatin Calcium (Lipitor) 40 mg BEDTIME ORAL 06/14/18 21:00 07/14/18 20:59 06/22/18 20:51 Dextrose (Dextrose 50%) 25 ml Q30M PRN IV Hypoglycemia 06/15/18 07:00 07/15/18 06:59 Dextrose (Dextrose 50%) 50 ml Q30M PRN IV Hypoglycemia 06/15/18 07:00 07/15/18 06:59 Escitalopram Oxalate (Lexapro) 10 mg DAILY ORAL 06/15/18 09:00 07/14/18 08:59 06/22/18 09:25 Insulin Aspart (NovoLOG) BEFORE MEALS AND HS SUBQ 06/14/18 16:30 07/14/18 06:29 06/23/18 06:46 Insulin Aspart (NovoLOG) 8 units NOVOTIAC SUBQ 06/17/18 11:50 07/15/18 06:59 06/23/18 06:45 Insulin Detemir (Levemir) 30 units DAILY SUBQ 06/15/18 09:00 07/15/18 08:59 06/22/18 09:37 Levetiracetam (Keppra) 750 mg Q12HR ORAL 06/14/18 21:00 07/14/18 08:59 06/22/18 20:51 Lisinopril (Zestril) 10 mg DAILY ORAL 06/20/18 09:00 07/20/18 08:59 06/22/18 09:25 Magnesium Oxide (Mag-Ox 400mg) 400 mg THREE TIMES A DAY ORAL 06/20/18 13:00 07/20/18 12:59 06/22/18 17:30 Metformin HCl (Glucophage) 500 mg TIAC ORAL 06/14/18 16:30 07/14/18 11:29 06/23/18 06:42 Pantoprazole (Protonix) 40 mg Q12HR ORAL 06/14/18 21:00 07/14/18 20:59 06/22/18 20:51 Tamsulosin HCl (Flomax) 0.4 mg BID ORAL 06/15/18 18:00 07/15/18 17:59 06/22/18 17:30 Thiamine HCl (Vitamin B1) 100 mg DAILY ORAL 06/15/18 09:00 07/14/18 12:44 06/22/18 09:25 Iban Baldwin MD Jun 23, 2018 06:51
--- NOTE | 2018-06-23 07:28 | NUR ---
HAND-OFF: Report given to Rachael PERDOMO.
[2018-06-23 08:00] VITALS: BP 124/70
[2018-06-23] MEDS: Magnesium Oxide 400mg tab ORAL SCH ×3 (08:27→17:12)
[2018-06-23] MEDS: Lisinopril 10mg tab ORAL SCH (08:27)
[2018-06-23] MEDS: Tamsulosin 0.4mg cap ORAL SCH ×2 (08:28→17:12)
[2018-06-23] MEDS: Thiamine 100mg tab ORAL SCH (08:28)
[2018-06-23] MEDS: Levemir Flexpen SUBQ SCH (08:33)
[2018-06-23 12:00] VITALS: BP 128/68
--- NOTE | 2018-06-23 12:19 | General Progress Note ---
Assessment/Plan Problem List: (1) Alcohol dependence with withdrawal, uncomplicated ICD Codes: F10.230 - Alcohol dependence with withdrawal, uncomplicated SNOMED: 82853359, 31219859 (2) Hyperglycemia ICD Codes: R73.9 - Hyperglycemia, unspecified SNOMED: 87464721, 39056155 Status: progressing Assessment/Plan hyperglycemia is better h/h etoh abuse diabetic med prescription per dr sanchez awaiting placement no acute events Subjective ROS Limited/Unobtainable: Yes Allergies: Coded Allergies: No Known Allergies (Unverified , 05/21/18) Objective Last 24 Hour Vital Signs Date Time Temp Pulse Resp B/P (MAP) Pulse Ox O2 Delivery O2 Flow Rate FiO2 06/23/18 12:00 98.1 65 18 128/68 (88) 95 06/23/18 09:00 Room Air 06/23/18 08:28 75 124/70 06/23/18 08:27 124/70 06/23/18 08:00 97.7 75 20 124/70 (88) 95 06/23/18 04:00 98.2 73 18 111/64 (80) 96 06/23/18 00:00 98.1 54 18 135/63 (87) 96 06/22/18 21:00 Room Air 06/22/18 20:00 98.3 63 18 121/67 (85) 99 06/22/18 16:00 98.0 69 17 121/62 (81) 98 Intake and Output 06/22/18 06/23/18 18:59 06:59 Intake Total 1220 ml 400 ml Balance 1220 ml 400 ml Intake Oral 1220 ml 400 ml # Voids 7 2 Height (Feet): 5 Height (Inches): 4.00 Weight (Pounds): 208 Cardiovascular: normal rate Respiratory/Chest: lungs clear Micha Swenson MD Jun 23, 2018 12:19
--- NOTE | 2018-06-23 15:47 | NUR ---
Social Service Note TOMMY left a message for Yvrose [phone] regarding patient's placement at [facility] [phone]. TOMMY also informed Kayla from [facility] [phone] of patient's dc location. Kayla will follow up with [facility] to assist with [facility] placement.
[2018-06-23 16:00] VITALS: BP 149/70
--- NOTE | 2018-06-23 16:09 | NUR ---
Social Work Patient has been accepted into [facility]: [address] [place] [id number] (ph [phone]). Patient aware and in agreement with discharging to this location (patient aware he cannot discharge back to [facility]). Nursing aware and will arrange cab to [facility]. Patient signed Homeless Patient Discharge planning checklist (in front of patients chart). No follow up with M.D appointments are required at this time, according to kumar Cano.
--- NOTE | 2018-06-23 16:55 | NUR ---
NURSE NOTES: patient is discharged to [facility]: [address] [place] [id number] (ph [phone]). s/d/t the discharge instructions and the personal belongings. Rx and his own meds that was stored in our pharm given to the patient's and reviewed. removed IV access. awaiting for the taxi to transport him to his destination. Patient will have dinner prior discharge. will cont the plan of care.
--- NOTE | 2018-06-23 18:11 | NUR ---
NURSE NOTES: d/c'd via wheelchair to the lobby by cab. removed ID band and no IV access. provided education regarding insulin pen. return demonstration rendered and understand. In stable condition. No seizure activity noted.
--- NOTE | 2018-06-23 18:19 | Nephrology Progress Note ---
Assessment/Plan Problem List: (1) Hyperglycemia (2) Alcohol dependence with withdrawal, uncomplicated (3) HTN (hypertension) Assessment DM OOC Sz disorder Alcohol dependencey Prostate cancer obese Plan magso4 supplement adjust bp meds glucophage DC Starlix now on levemir am and HS monitor BS and lytes med surg Subjective ROS Limited/Unobtainable: No Objective Objective Last 24 Hour Vital Signs Date Time Temp Pulse Resp B/P (MAP) Pulse Ox O2 Delivery O2 Flow Rate FiO2 06/23/18 16:00 96.8 62 18 149/70 (96) 97 06/23/18 12:00 98.1 65 18 128/68 (88) 95 06/23/18 09:00 Room Air 06/23/18 08:28 75 124/70 06/23/18 08:27 124/70 06/23/18 08:00 97.7 75 20 124/70 (88) 95 06/23/18 04:00 98.2 73 18 111/64 (80) 96 06/23/18 00:00 98.1 54 18 135/63 (87) 96 06/22/18 21:00 Room Air 06/22/18 20:00 98.3 63 18 121/67 (85) 99 Intake and Output 06/22/18 06/23/18 19:00 07:00 Intake Total 1220 ml 400 ml Balance 1220 ml 400 ml Intake Oral 1220 ml 400 ml # Voids 7 2 Height (Feet): 5 Height (Inches): 4.00 Weight (Pounds): 208 General Appearance: no apparent distress Objective no change Nicolas Almaguer MD Jun 23, 2018 18:19
--- NOTE | 2018-06-23 20:18 | General Progress Note ---
Assessment/Plan Problem List: (1) Alcohol dependence with withdrawal, uncomplicated ICD Codes: F10.230 - Alcohol dependence with withdrawal, uncomplicated SNOMED: 07470805, 71187499 Assessment/Plan Valium 10mg 1 time folate thiamine Valium prn Subjective Neurologic/Psychiatric: Reports: anxiety, depressed, emotional problems Allergies: Coded Allergies: No Known Allergies (Unverified , 05/21/18) Objective Last 24 Hour Vital Signs Date Time Temp Pulse Resp B/P (MAP) Pulse Ox O2 Delivery O2 Flow Rate FiO2 06/23/18 16:00 96.8 62 18 149/70 (96) 97 06/23/18 12:00 98.1 65 18 128/68 (88) 95 06/23/18 09:00 Room Air 06/23/18 08:28 75 124/70 06/23/18 08:27 124/70 06/23/18 08:00 97.7 75 20 124/70 (88) 95 06/23/18 04:00 98.2 73 18 111/64 (80) 96 06/23/18 00:00 98.1 54 18 135/63 (87) 96 06/22/18 21:00 Room Air Intake and Output 06/22/18 06/23/18 19:00 07:00 Intake Total 1220 ml 400 ml Balance 1220 ml 400 ml Intake Oral 1220 ml 400 ml # Voids 7 2 Height (Feet): 5 Height (Inches): 4.00 Weight (Pounds): 208 Luiz Stuart MD Jun 23, 2018 20:18
--- NOTE | 2018-06-23 20:47 | General Progress Note ---
Assessment/Plan Assessment/Plan Assessment and Recs: # Prostate cancer - with a elevated psa of 19.7, no known history of malignancy --> trend psa in the future --> recommend obtain repeat biopsy of the prostate with uro --> outpatient bone scan to make sure no mets noted --> needs f/u for this as outpatient with onc or uro # ANemia of chronic disease --> currently stabilized, improved since admission # Alcohol dependence with withdrawal, uncomplicated --> improved through admission # Hyperglycemia --> seen by endo and improved on iss, accuchecks and insulin # Syncopal episode likely hypovolemia related The timing of this note does not necessarily reflect the time of the patient was seen. Greatly appreciate consultation! Subjective Allergies: Coded Allergies: No Known Allergies (Unverified , 05/21/18) Subjective 06/20: seen by bedside, awake, comfortable, denies acute distress. 06/21: Pt is resting in bed, no overnight events reported, no fevers or chills. 06/22: Pt is awake, comfortable, no acute distress. 06/23: seen by bedside, awake, comfortable, no acute distress. Objective Last 24 Hour Vital Signs Date Time Temp Pulse Resp B/P (MAP) Pulse Ox O2 Delivery O2 Flow Rate FiO2 06/23/18 16:00 96.8 62 18 149/70 (96) 97 06/23/18 12:00 98.1 65 18 128/68 (88) 95 06/23/18 09:00 Room Air 06/23/18 08:28 75 124/70 06/23/18 08:27 124/70 06/23/18 08:00 97.7 75 20 124/70 (88) 95 06/23/18 04:00 98.2 73 18 111/64 (80) 96 06/23/18 00:00 98.1 54 18 135/63 (87) 96 06/22/18 21:00 Room Air Intake and Output 06/22/18 06/23/18 19:00 07:00 Intake Total 1220 ml 400 ml Balance 1220 ml 400 ml Intake Oral 1220 ml 400 ml # Voids 7 2 Height (Feet): 5 Height (Inches): 4.00 Weight (Pounds): 208 Objective Sp02: reviewed, normal General Appearance: alert, derate distress - pt. shaky/ nervous Head: normocephalic Eyes: bilateral eye normal inspection, bilateral eye PERR ENT: hearing grossly normal, normal voice Neck: full range of motion, no bony tend Respiratory: lungs clear, normal breath sounds Cardiovascular #1: regular rate, rhythm Gastrointestinal: normal bowel sounds, non tender, soft Musculoskeletal: back normal Neurologic: alert, oriented x3, responsive Psychiatric: judgement/insight normal Skin: normal color, no rash, warm/dry Elmer Woodward MD Jun 23, 2018 20:47
--- NOTE | 2018-06-26 11:18 | Discharge Summary ---
Discharge Summary Discharge Summary _ DATE OF ADMISSION: 06/13/2018 DATE OF DISCHARGE: 06/23/2018 DISCHARGED BY: Dr. Swenson REASON FOR ADMISSION: 63 years old male with past medical history of diabetes mellitus, seizure disorder, prostate cancer, history of alcohol dependency, homeless, presented to emergency department feeling shaky and on the verge of having seizure. He denied nausea, vomiting , abdominal pain , sudden onset of headache , dizziness , syncope, or mental status changes, fever and chills. Patient reported not being compliant with blood sugar medications since 2010, as they did not make him feel good. Patient reported history of alcohol abuse and dependency , trying to cut it back in the last few days. Patient denied agitation. Upon evaluation patient demonstrated low-grade fever of 100. Troponin negative , EKG revealed sinus rhythm with first-degree AV block. Urinalysis was negative for evidence of UTI, but showed+4 glucose. Urine toxicology screen was negative. Hematology revealed no leukocytosis, stable hemoglobin and hematocrit , sodium 129. BUN 15 , creatinine 1.2 . Glucose 638. Stable anion gap and potassium 4.8. Alcohol level less than 3 . Patient started on the IV fluids and received 10 units of regular insulin. Patient was also provided with one dose of Librium. Patient was admitted for further management. CONSULTANTS: milk route deliverer Dr. Almaguer trust manager/oncologist Dr. Woodward Packer Operator Automatic Dr. Baldwin psychiatrist [facility] COURSE: Patient admitted to medical surgical floor and started on the IV hydration and close blood sugar management. Packer Operator Automatic followed . Patient was started on long-acting Levemir along with Metformin and short acting NovoLog before meals. Doses of insulin were titrated as per endocrinology for blood sugar control. Sliding scale of insulin was implemented as needed. Hemoglobin A1c 9.7 clearly not at goal . Patient will need further optimization of anti-glycemic regimen as outpatient. Patient was educated on compliance with medication regimen and diabetic diet. Blood sugar stabilized. Performance Test Architect closely followed. Renal parameters and electrolytes were closely monitored, nephrotoxins were avoided and electrolytes were corrected as needed. Hyponatremia resolved, sodium from initial 129 up to 140 upon discharge. Multivitamin, thiamine and folic acid were provided. Valium was on standby as needed for anxiety and withdrawal symptoms. Patient started on GI prophylaxis. Blood pressure was managed with calcium channel blake. Seizure precautions were maintained. Keppra was continued. No evidence of seizure activity while in the hospital. Patient was counseled on ETOH abstinence. Psychiatrist followed. Supportive therapy and reality orientation provided. Oncologist followed. Patient with a history of prostate cancer and elevated PSA of 19.9. He recommended to repeat biopsy of the prostate with urologist and bone scan as outpatient to make sure no masses . Oncologist recommended outpatient follow-up with urologist and oncologist. Trend PSA in future was recommended. Placement was arranged for transfer to [facility]uperative care. Patient was stable for discharge FINAL DIAGNOSES: Hyperglycemia due to diabetes mellitus out of control Alcohol dependency with withdrawal Hypertension Seizure disorder Prostate cancer Obesity DISCHARGE MEDICATIONS: See Medication Reconciliation list. DISCHARGE INSTRUCTIONS: Patient was discharged to [facility]. Follow up with primary medical provider as well as oncologist and urologist. I have been assigned to dictate discharge summary for this account. I was not involved in the patient's management. Caron Askew NP Jun 26, 2018 11:18
== END 2018-06-23 18:00 | DRG 420 ==
LOC: EDBD 19:05 → EMR 19:30 → 2E 21:00 → EDBEDREQTM 21:38 → EDBEDREQ 21:38 → EDBEDREQSVC 21:38 → EDBEDREQ 21:39 → 2E 22:45 → 4E 06-14 14:36
DX: E11.65 Type 2 diabetes mellitus with hyperglycemia (principal); C61 Malignant neoplasm of prostate; E66.9 Obesity, unspecified; D63.8 Anemia in other chronic diseases classified elsewhere; E86.1 Hypovolemia; F10.239 Alcohol dependence with withdrawal, unspecified; G40.909 Epilepsy, unspecified, not intractable, without status epilepticus; I10 Essential (primary) hypertension; Z59.0 Homelessness
CPT/HCPCS: 36415; 80053; 80061; 80299; 80307; 80329; 81003; 82550; 82607; 82746; 82962; 83036; 83735; 83880; 84100; 84153; 84484; 84550; 85025; 86140; 87081; 93005; 96361; 96374; 99285; J1815; S5561

== ENCOUNTER 2018-06-28 17:05 | Emergency (ER) | payer MEDICAID ==
[~2018-06-28] VITALS: Ht 157.5 cm; Wt 72.6 kg
[2018-06-28] MEDS ORDERED: UNOBMED (17:13)
--- NOTE | 2018-06-28 17:41 | NUR ---
ED Nurse Note: Pt was here in the hospital last week and was placed in a conv home. Conv home could only keep the pt for a couple days and now hes here for placement. A + O x4. AMbulatory.
[2018-06-28 17:42] VITALS: BP 160/70
[2018-06-28 18:37] LABS: BASOPHILS % (AUTO) 1.2 % (0.0-2.0); EOSINOPHILS % (AUTO) 2.6 % (0.0-3.0); HEMATOCRIT 42.3 % (42.0-52.0); HEMOGLOBIN 13.7 G/DL (14.2-18.0); LYMPHOCYTES % (AUTO) 21.9 % (20.0-45.0); MEAN CORPUSCULAR VOLUME 82 FL (80-99); NEUTROPHILS % (AUTO) 66.4 % (45.0-75.0); PLATELET COUNT 266 K/UL (150-450); RED BLOOD COUNT 5.18 M/UL (4.70-6.10); WHITE BLOOD COUNT 7.5 K/UL (4.8-10.8)
[2018-06-28 18:45] LABS: ANION GAP 10 mmol/L (5-15); BLOOD UREA NITROGEN 9 mg/dL (7-18); CALCIUM 8.7 MG/DL (8.5-10.1); CARBON DIOXIDE 29 MMOL/L (21-32); CHLORIDE 100 MMOL/L (98-107); CREATININE 0.8 MG/DL (0.55-1.30); POTASSIUM 3.6 MMOL/L (3.5-5.1); SODIUM 139 MMOL/L (136-145)
[2018-06-28 18:49] LABS: ALANINE AMINOTRANSFERASE 23 U/L (12-78); ALBUMIN 3.9 G/DL (3.4-5.0); ALKALINE PHOSPHATASE 102 U/L (46-116); ASPARTATE AMINO TRANSFERASE 9 U/L (15-37); BILIRUBIN,TOTAL 0.2 MG/DL (0.2-1.0)
--- NOTE | 2018-06-28 19:02 | NUR ---
HAND-OFF: Report given to Bahman Roy RN.
--- NOTE | 2018-06-28 21:08 | Emergency Room Report ---
History of Present Illness General Chief Complaint: General Complaint Source: Medical Record Present Illness Allergies: Coded Allergies: No Known Allergies (Unverified , 05/21/18) Nursing Documentation-[facility] Past Medical History: No History, Except For Hx Cardiac Problems: No Hx COPD: Yes Hx Diabetes: Yes Hx Cancer: Yes - prostate Hx Gastrointestinal Problems: Yes Hx Neurological Problems: Yes Hx Seizures: Yes Physical Exam Vital Signs Date Time Temp Pulse Resp B/P (MAP) Pulse Ox O2 Delivery O2 Flow Rate FiO2 06/28/18 17:12 98.8 78 18 166/89 95 Room Air 06/28/18 17:42 100 Medical Decision Making PA Attestation Dr. Obrien is my supervising Physician whom patient management has been discussed with. Homeless Attestation I, The treating provider, Constance BEAL, has assessed and agrees that patient is medically stable for discharge to an outpatient disposition. Diagnostic Impression: Primary Impression: Blood glucose elevated Additional Impression: EtOH dependence Qualified Codes: F10.20 - Alcohol dependence, uncomplicated Labs Test 06/28/18 18:18 White Blood Count 7.5 K/UL (4.8-10.8) Red Blood Count 5.18 M/UL (4.70-6.10) Hemoglobin 13.7 G/DL (14.2-18.0) Hematocrit 42.3 % (42.0-52.0) Mean Corpuscular Volume 82 FL (80-99) Mean Corpuscular Hemoglobin 26.4 PG (27.0-31.0) Mean Corpuscular Hemoglobin Concent 32.3 G/DL (32.0-36.0) Red Cell Distribution Width 14.0 % (11.6-14.8) Platelet Count 266 K/UL (150-450) Mean Platelet Volume 7.2 FL (6.5-10.1) Neutrophils (%) (Auto) 66.4 % (45.0-75.0) Lymphocytes (%) (Auto) 21.9 % (20.0-45.0) Monocytes (%) (Auto) 8.0 % (1.0-10.0) Eosinophils (%) (Auto) 2.6 % (0.0-3.0) Basophils (%) (Auto) 1.2 % (0.0-2.0) Sodium Level 139 MMOL/L (136-145) Potassium Level 3.6 MMOL/L (3.5-5.1) Chloride Level 100 MMOL/L (98-107) Carbon Dioxide Level 29 MMOL/L (21-32) Anion Gap 10 mmol/L (5-15) Blood Urea Nitrogen 9 mg/dL (7-18) Creatinine 0.8 MG/DL (0.55-1.30) Estimat Glomerular Filtration Rate > 60 mL/min (>60) Glucose Level 342 MG/DL (74-106) Calcium Level 8.7 MG/DL (8.5-10.1) Total Bilirubin 0.2 MG/DL (0.2-1.0) Aspartate Amino Transf (AST/SGOT) 9 U/L (15-37) Alanine Aminotransferase (ALT/SGPT) 23 U/L (12-78) Alkaline Phosphatase 102 U/L (46-116) Total Protein 7.7 G/DL (6.4-8.2) Albumin 3.9 G/DL (3.4-5.0) Globulin 3.8 g/dL Albumin/Globulin Ratio 1.0 (1.0-2.7) Salicylates Level 0.8 ug/mL (2.8-20) Urine Opiates Screen Negative (NEGATIVE) Acetaminophen Level < 2 MCG/ML (10-30) Urine Barbiturates Screen Negative (NEGATIVE) Phencyclidine (PCP) Screen Negative (NEGATIVE) Urine Amphetamines Screen Negative (NEGATIVE) Urine Benzodiazepines Screen Negative (NEGATIVE) Urine Cocaine Screen Negative (NEGATIVE) Urine Marijuana (THC) Screen Negative (NEGATIVE) Serum Alcohol < 3 mg/dL Last Vital Signs Date Time Temp Pulse Resp B/P (MAP) Pulse Ox O2 Delivery O2 Flow Rate FiO2 06/28/18 17:42 78 18 Room Air 100 06/28/18 17:42 98.8 160/70 95 Disposition: HOME, SELF-CARE Condition: Stable Referrals: Georgie NGUYEN,REFERRING (PCP) Patient Instructions: Blood Glucose Monitoring, Adult, Medical Screening Exam Additional Instructions: Take previously prescribed medications as directed. Follow up with a Primary Care Provider in 3-5 days, even if your symptoms have resolved. --Please review list of primary care clinics, if you do not already have a primary care provider Return sooner to ED if new symptoms occur, or current symptoms become worse. - Please note that this Emergency Department Report was dictated using Dragon cylinder machine operator pulp drier technology software, occasionally this can lead to erroneous entry secondary to interpretation by the dictation equipment. Constance Bautista Jun 28, 2018 21:08
--- NOTE | 2018-06-28 21:15 | NUR ---
ED Nurse Note: Provided pt with sandwich and juice
[2018-06-28 21:40] VITALS: BP 160/70
--- NOTE | 2018-06-28 21:40 | NUR ---
Homeless Discharge: Patient is being discharged from medical care. Awake, alert and oriented x4. After care instructions, including referral to community resources were given. Patient verbalized understanding of After care instructions; at this time patient does not request medications, equipment or placement. Patient signed patient consent in the medical record for patient destination upon discharge. All medical devices such as IV and ID band were removed. Patient ambulated out with all personal belongings with steady gait.
== END 2018-06-28 21:40 | disposition home or self-care (01) ==
LOC: EMR 17:53
DX: E11.65 Type 2 diabetes mellitus with hyperglycemia (principal); J44.9 Chronic obstructive pulmonary disease, unspecified; Z85.46 Personal history of malignant neoplasm of prostate; F10.20 Alcohol dependence, uncomplicated
CPT/HCPCS: 36415; 80053; 80307; 80329; 85025; 96360; 99284